=== PATIENT | female | born 1955 | race Caucasian/White ===

== ENCOUNTER 2024-06-29 08:46 | Outpatient (AMB) | payer MEDICARE, BC, SELFPAY ==
[2024-06-29 08:58] VITALS: BP 118/68; PULSE 87; RESP 18; TEMP 35.8; O2SAT 97; BMI 33.0
--- NOTE | 2024-06-29 08:58 | GSCOFFNT_ITS ---
[facility] 06/29/24 08:58 Height 1.57 m Height Method Stated Weight 81.391 kg Weight Measurement Method Standing Scale BMI 33.0 BP 118/68 Blood Pressure Source Automatic Cuff Blood Pressure Location Right Upper Arm Position Sitting Respiration 18 Pulse 87 Pulse Source Monitor Temp 96.5 F L Temp Source Temporal Artery Scan Pulse Oximetry (%) 97 Oxygen Delivery Method Room Air Med/Allergies Allergies & Medications Allergies No Known Allergies Allergy (Verified 06/29/24 08:59) MA Intake Visit Data Collection New Patient or Established: Established Patient (seen at [facility] within 3 years) Seen by Clinical Staff ONLY (RN/MA): No Pain Present Currently: No Legal Transcriptionist Required: No PCP or OBGYN visit in last 3 months: Yes Hx Now: No Do You Feel Safe at Home: Yes Authorities Contacted: N/A Smoking Status Smoking Status: Never smoker Immunization / Flu Flu Vaccine in the Last 12 Months: No Flu Vaccine Exclusion Criteria: No Exclusion Criteria Past Medical History Past Medical History NEUROLOGIC: Negative Neurological Disorders or Seizures CARDIAC: Positive Cardiac Disorders, Coronary Artery Disease (stents 2018), Edema (sometimes right ankle), Hypertension and Varicose Veins; Negative Congestive Heart Failure RESPIRATORY: Negative Chronic Obstructive Pulmonary Disease (COPD) GASTROINTESTINAL: Positive Gastrointestinal Disorders and Obesity; Negative Hepatitis GENITOURINARY: Negative Genitourinary Disorders or Renal Disease REPRODUCTIVE: Positive Breast Cancer (Left, right breast past) and Previous Pregnancies MUSCULOSKELETAL: Positive Arthritis ENT: Negative Cataracts ENDOCRINE: Positive Endocrine Disorders, Hypoglycemia, Hyperthyroidism and Hypothyroidism; Negative Diabetes Mellitus Type 1 or Diabetes Mellitus Type 2 HEMATOLOGIC: Negative Blood Disorders OTHER HISTORY: Positive Hospitalization (surgery), Chemotherapy, Radiation Therapy (2010 right breast), Chicken Pox, Measles, Cancer and Breast Cancer (Left, right breast past); Negative Shingles, Blood Transfusions, Anesthesia Reactions, Organ Transplant or MRSA Family History FAMILY HISTORY: Positive Family Cancer and Family Surgery; Negative Family Psychiatric Problems, Family Respiratory Disorders, Family Cardiac Disorders, Family Gastrointestinal Problems or Family Anesthesia Reaction Surgical History SURGICAL: Positive Coronary Stent, Mastectomy and Lumpectomy; Negative Endocrine Surgery (hypothyroidism), Thyroidectomy, Ear Surgery, Tympanostomy Tube, Eye Surgery, Nose Surgery, Oral Surgery, Tonsillectomy, Adenoidectomy, Cochlear Implant, Corneal Transplant, Throat Surgery, Abdominal Surgery, Tracheostomy, Gastric Bypass Surgery, Gastrostomy, Bowel Surgery, Nephrectomy, Transurethral Resection, Neurologic Surgery, Brain Shunt, Vasectomy or Organ Transplant Social History SMOKING STATUS: Smoking status: Never smoker SECOND HAND EXPOSURE: second hand exposure: No ALCOHOL: Alcohol Intake: Never HOUSING: Housing: House HPI HPI Narrative 68F with HTN, HLD, hypothyroidism, CAD, left breast CA s/p lumpectomy with SLNB 04/01 followed by chemoradiation, with symptomatic left breast hematoma s/p I&D 12/03, gradually recovering. Pt has no complaints, continues to follow up at wound care and feels the wound is gradually sandip ROS Review of Systems Systems Reviewed: All systems reviewed, normal except as documented Objective/Exam General General Appearance: alert, cooperative and well groomed Chest Chest inspection: Present other (left breast upper outer cavity with pink granulation tissue, no surrounding erythema) Resp Respiratory exam: Absent respiratory distress Assessment & Plan Diagnosis / Problem List (1) Postoperative seroma: Status: Acute Qualifiers: Laterality: left Assessment & Plan: 68F with HTN, HLD, hypothyroidism, CAD, left breast CA s/p lumpectomy with SLNB 04/01 followed by chemoradiation, with symptomatic left breast hematoma s/p I&D 12/03, gradually recovering Advanced Care Planning Advance care planning discussed with:: patient Office Procedures GNS Level of Care Nursing/Assessment Patient Status: Established Patient Nursing Assessment/Reassesment: Medication Reconciliation, Update PMH in EMR and Vital Signs Coordination of Care: Complex Care and Chronic Disease 1-5, Education Complex Pt/Fam, Consent,records obtained, informed consent and Staff clarify orders Established Patient Charge Established Patient Point Assignment: 90 Established Patient Point Charge: EP Level 3 (80-115) Patient Portal Questionaires Social History Living Situation History Housing: House Tobacco History Smoking Status: Never smoker Second Hand Smoke Exposure: No Alcohol History Alcohol Intake: Never Domestic Abuse History Do You Feel Safe at Home: Yes Review of Systems Report any current symptoms Only answer those that you have currently: Past Medical History Past Medical History Have you ever been diagnosed with any of the following: Neurological Problems Seizures: No Cardiology Problems Coronary Artery Disease: Yes (stents 2019) Congestive Heart Failure: No Edema: Yes (sometimes right ankle) Hypertension: Yes Varicose Veins: Yes Respiratory Problems Chronic Obstructive Pulmonary Disease (COPD): No Stomache/Intestinal Problems Hepatitis: No Obesity: Yes Genital/Urinary Problems Renal Disease: No Reproductive Problems Breast Cancer: Yes (Left, right breast past) Previous Pregnancies: Yes Musculoskeletal Problems Arthritis: Yes Head,Eye,Nose,Throat Problems Cataracts: No Endocrine Problems Diabetes Mellitus Type 1: No Diabetes Mellitus Type 2: No Hypoglycemia: Yes Hyperthyroidism: Yes Hypothyroidism: Yes Other Problems Hospitalization: Yes (surgery) Shingles: No Blood Transfusions: No Anesthesia Reactions: No Organ Transplant: No Chemotherapy: Yes Radiation Therapy: Yes (2010 right breast) MRSA: No Chicken Pox: Yes Measles: Yes Cancer: Yes Surgical History Thyroidectomy: No
== END 2024-06-29 09:17 | disposition home or self-care (01) ==
LOC: HODSRG 08:46
PROVIDERS: PCP Family Medicine; Referring Provider Family Medicine; Supervising Provider Surgery; Visit Provider Surgery
DX: Z48.817 Encounter for surgical aftercare following surgery on the skin and subcutaneous tissue (principal); C50.912 Malignant neoplasm of unspecified site of left female breast
CPT/HCPCS: 99213; G0463

== ENCOUNTER → 2024-07-28 | Outpatient (CLI) | payer MEDICARE, BC, SELFPAY | END | disposition home or self-care (01) | PROVIDERS: PCP Family Medicine; Referring Provider Family Medicine; Visit Provider Student in an Organized Health Care Education/Training Program | DX: T81.89XD Other complications of procedures, not elsewhere classified, subsequent encounter (principal); L59.8 Other specified disorders of the skin and subcutaneous tissue related to radiation; Y84.2 Radiological procedure and radiotherapy as the cause of abnormal reaction of the patient, or of later complication, without mention of misadventure at the time of the procedure; I25.119 Atherosclerotic heart disease of native coronary artery with unspecified angina pectoris; I10 Essential (primary) hypertension; E78.5 Hyperlipidemia, unspecified; G92.9 Unspecified toxic encephalopathy; M47.9 Spondylosis, unspecified; I25.10 Atherosclerotic heart disease of native coronary artery without angina pectoris | CPT/HCPCS: 11042; A9270 ==

== ENCOUNTER 2024-07-30 08:42 | Outpatient (AMB) | payer MEDICARE, BC, SELFPAY ==
[2024-07-30 08:55] VITALS: BP 128/72; PULSE 83; RESP 18; TEMP 36.1; O2SAT 96; BMI 32.8
--- NOTE | 2024-07-30 08:55 | GSCOFFNT_ITS ---
[facility] - [facility] 07/30/24 08:55 Height 1.57 m Height Method Stated Weight 80.91 kg Weight Measurement Method Standing Scale BMI 32.8 BP 128/72 Blood Pressure Source Automatic Cuff Blood Pressure Location Right Upper Arm Position Sitting Respiration 18 Pulse 83 Pulse Source Monitor Temp 96.9 F Temp Source Temporal Artery Scan Pulse Oximetry (%) 96 Oxygen Delivery Method Room Air Med/Allergies Allergies & Medications Allergies No Known Allergies Allergy (Verified 07/30/24 08:56) Medication Reconciliation clopidogrel 75 mg tablet 75 mg PO QDAY 02/18/23 [History Confirmed 07/30/24] levothyroxine 50 mcg capsule 50 mcg PO QDAY 02/18/23 [History Confirmed 07/30/24] loratadine 10 mg tablet 10 mg PO QDAY 02/18/23 [History Confirmed 07/30/24] rosuvastatin 20 mg tablet 20 mg PO QDAY 02/18/23 [History Confirmed 07/30/24] metoprolol succinate 25 mg tablet,extended release 24 hr 50 mg PO QDAY 04/30/23 [History Confirmed 07/30/24] alendronate 35 mg tablet 35 mg PO QWEEK 12/03/23 [History Confirmed 07/30/24] calcium 250 mg (as citrate)-vitamin D3 5 mcg (200 unit) tablet 1 tab PO BID 12/03/23 [History Confirmed 07/30/24] letrozole 2.5 mg tablet (Femara) 2.5 mg PO QDAY 12/03/23 [History Confirmed 07/30/24] naproxen sodium 220 mg tablet (Aleve) 220 mg PO QHSPRN 12/03/23 [History Confirmed 07/30/24] calcium phosphate-vitamin D3 250 mg calcium-250 unit chewable tablet 1 tab PO QDAY 03/30/24 [History Confirmed 07/30/24] lisinopril 5 mg tablet 5 mg PO QDAY 03/30/24 [History Confirmed 07/30/24] vit C-vit [id number] capsule 1 cap PO QDAY 03/30/24 [History Confirmed 1 09/30/23] MA Intake Visit Data Collection New Patient or Established: Established Patient (seen at [facility] within 3 years) Reason for Visit:: FOLLOW UP Pain Present Currently: Yes Pain Location: Breast Pain scale:: 4 Pain Scale Used: WeldonShyamOneil/Numerical Labor Delivery Specialist Required: No PCP or OBGYN visit in last 3 months: Yes Hx Now: No Do You Feel Safe at Home: Yes Authorities Contacted: N/A Smoking Status Smoking Status: Never smoker Immunization / Flu Flu Vaccine in the Last 12 Months: No Flu Vaccine Exclusion Criteria: No Exclusion Criteria Past Medical History Past Medical History NEUROLOGIC: Negative Neurological Disorders or Seizures CARDIAC: Positive Cardiac Disorders, Coronary Artery Disease (stents 2019), Edema (sometimes right ankle), Hypertension and Varicose Veins; Negative Congestive Heart Failure RESPIRATORY: Negative Chronic Obstructive Pulmonary Disease (COPD) GASTROINTESTINAL: Positive Gastrointestinal Disorders and Obesity; Negative Hepatitis GENITOURINARY: Negative Genitourinary Disorders or Renal Disease REPRODUCTIVE: Positive Breast Cancer (Left, right breast past) and Previous Pregnancies MUSCULOSKELETAL: Positive Arthritis ENT: Negative Cataracts ENDOCRINE: Positive Endocrine Disorders, Hypoglycemia, Hyperthyroidism and Hypothyroidism; Negative Diabetes Mellitus Type 1 or Diabetes Mellitus Type 2 HEMATOLOGIC: Negative Blood Disorders OTHER HISTORY: Positive Hospitalization (surgery), Chemotherapy, Radiation Therapy (2010 right breast), Chicken Pox, Measles, Cancer and Breast Cancer (Left, right breast past); Negative Shingles, Blood Transfusions, Anesthesia Reactions, Organ Transplant or MRSA Family History FAMILY HISTORY: Positive Family Cancer and Family Surgery; Negative Family Psychiatric Problems, Family Respiratory Disorders, Family Cardiac Disorders, Family Gastrointestinal Problems or Family Anesthesia Reaction Surgical History SURGICAL: Positive Coronary Stent, Mastectomy and Lumpectomy; Negative Endocrine Surgery (hypothyroidism), Thyroidectomy, Ear Surgery, Tym panostomy Tube, Eye Surgery, Nose Surgery, Oral Surgery, Tonsillectomy, Adenoidectomy, Cochlear Implant, Corneal Transplant, Throat Surgery, Abdominal Surgery, Tracheostomy, Gastric Bypass Surgery, Gastrostomy, Bowel Surgery, Nephrectomy, Transurethral Resection, Neurologic Surgery, Brain Shunt, Vasectomy or Organ Transplant Social History SMOKING STATUS: Smoking status: Never smoker SECOND HAND EXPOSURE: second hand exposure: No ALCOHOL: Alcohol Intake: Never HOUSING: Housing: House HPI HPI Narrative 68F with HTN, HLD, hypothyroidism, CAD, left breast CA s/p lumpectomy with SLNB 04/01 followed by chemoradiation, with symptomatic left breast hematoma s/p I&D 12/03, gradually recovering. Pt feels well overall, is continuing regular follow up at wound care and feels the wound is finally sandip more ROS Review of Systems Systems Reviewed: All systems reviewed, normal except as documented Objective/Exam General General Appearance: alert, cooperative and well groomed Chest Chest inspection: Present other (right upper outer breast cavity with healthy pink tissue at base, no surrounding erythema, no drainage) Resp Respiratory exam: Absent respiratory distress Assessment & Plan Diagnosis / Problem List (1) Postoperative seroma: Status: Acute Qualifiers: Laterality: left Assessment & Plan: 68F with HTN, HLD, hypothyroidism, CAD, left breast CA s/p lumpectomy with SLNB 04/01 followed by chemoradiation, with symptomatic left breast hematoma s/p I&D 12/03, gradually recovering Advanced Care Planning Advance care planning discussed with:: patient Office Procedures GNS Level of Care Nursing/Assessment Patient Status: Established Patient Nursing Assessment/Reassesment: Medication Reconciliation, Update PMH in EMR and Vital Signs Coordination of Care: Complex Care and Chronic Disease 1-5, Education Complex Pt/Fam, Consent,records obtained, informed consent, Results/Orders obtained and Staff clarify orders Miscellaneous Interventions: Dressing placement or removal Established Patient Charge Established Patient Point Assignment: 115 Established Patient Point Charge: EP Level 3 (80-115) Patient Portal Questionaires Social History Living Situation History Housing: House Tobacco History Smoking Status: Never smoker Second Hand Smoke Exposure: No Alcohol History Alcohol Intake: Never Domestic Abuse History Do You Feel Safe at Home: Yes Review of Systems Report any current symptoms Only answer those that you have currently: Past Medical History Past Medical History Have you ever been diagnosed with any of the following: Neurological Problems Seizures: No Cardiology Problems Coronary Artery Disease: Yes (stents 2019) Congestive Heart Failure: No Edema: Yes (sometimes right ankle) Hypertension: Yes Varicose Veins: Yes Respiratory Problems Chronic Obstructive Pulmonary Disease (COPD): No Stomache/Intestinal Problems Hepatitis: No Obesity: Yes Genital/Urinary Problems Renal Disease: No Reproductive Problems Breast Cancer: Yes (Left, right breast past) Previous Pregnancies: Yes Musculoskeletal Problems Arthritis: Yes Head,Eye,Nose,Throat Problems Cataracts: No Endocrine Problems Diabetes Mellitus Type 1: No Diabetes Mellitus Type 2: No Hypoglycemia: Yes Hyperthyroidism: Yes Hypothyroidism: Yes Other Problems Hospitalization: Yes (surgery) Shingles: No Blood Transfusions: No Anesthesia Reactions: No Organ Transplant: No Chemotherapy: Yes Radiation Therapy: Yes (2010 right breast) MRSA: No Chicken Pox: Yes Measles: Yes Cancer: Yes Surgical History Thyroidectomy: No
== END 2024-07-30 09:15 | disposition home or self-care (01) ==
LOC: HODSRG 08:42
PROVIDERS: PCP Family Medicine; Referring Provider Family Medicine; Supervising Provider Surgery; Visit Provider Surgery
DX: Z48.817 Encounter for surgical aftercare following surgery on the skin and subcutaneous tissue (principal); C50.912 Malignant neoplasm of unspecified site of left female breast
CPT/HCPCS: 99213; G0463

== ENCOUNTER → 2024-08-04 | Outpatient (CLI) | payer MEDICARE, BC, SELFPAY | END | disposition home or self-care (01) | LOC: SWHD 08:34 | PROVIDERS: PCP Family Medicine; Referring Provider Family Medicine; Visit Provider Surgery | DX: L59.8 Other specified disorders of the skin and subcutaneous tissue related to radiation (principal); Y84.2 Radiological procedure and radiotherapy as the cause of abnormal reaction of the patient, or of later complication, without mention of misadventure at the time of the procedure; I25.119 Atherosclerotic heart disease of native coronary artery with unspecified angina pectoris; I10 Essential (primary) hypertension; E78.5 Hyperlipidemia, unspecified; G92.9 Unspecified toxic encephalopathy; M47.9 Spondylosis, unspecified; I25.10 Atherosclerotic heart disease of native coronary artery without angina pectoris | CPT/HCPCS: 11042; A9270 ==

== ENCOUNTER 2024-08-11 13:06 | Outpatient (RCR) | payer MEDICARE, BC, SELFPAY ==
[2024-08-10 10:53] LABS: Basophils # (Auto) 0.1 Thou/mm3 (0.0-0.2); Basophils % (Auto) 1 % (0-2.5); Eosinophils # (Auto) 0.2 Thou/mm3 (0.0-0.5); Eosinophils % (Auto) 4 % (0-10); Hematocrit 37.6 % (36.0-46.0); Hemoglobin 12.6 g/dL (12.0-16.0); Immature Granulocytes % (Auto) 0 % (0-0); Immature Granulocytes Auto 0.01 Thou/mm3 (0.00-0.00); Lymphocytes # (Auto) 1.5 Thou/mm3 (1.0-4.8); Lymphocytes % (Auto) 26 % (10-50); Mean Corpuscular HGB Conc 33.5 g/dl (31.0-37.0); Mean Corpuscular Hemoglobin 30.1 pg (25.0-35.0); Mean Corpuscular Volume 90 fL (80-100); Monocytes # (Auto) 0.6 Thou/mm3 (0.0-0.8); Monocytes % (Auto) 11 % (0-12); Neutrophils # (Auto) 3.3 Thou/mm3 (1.8-7.7); Neutrophils % (Auto) 58 % (37-80); Nucleated Red Blood Cell % 0 /100 WBC (0); Platelet Count 201 Thou/mm3 (140-440); RDW Standard Deviation 44.1 fL (36.4-46.3); Red Blood Count 4.19 Miln/mm3 (4.00-5.20); White Blood Count 5.7 Thou/mm3 (3.6-11.0)
[2024-08-10 11:10] LABS: Alanine Aminotransferase 43 U/L (10-49); Albumin, Serum 4.5 gm/dL (3.4-4.8); Albumin/Globulin Ratio 1.9 (1.2-2.2); Alkaline Phosphatase 73 U/L (46-116); Anion Gap 10 (7-16); Aspartate Amino Transferase 40 U/L (0-34); BUN/Creatinine Ratio 20 Ratio (12-20); Bilirubin,Total 0.6 mg/dL (0.3-1.2); Blood Urea Nitrogen 14 mg/dL (9-23); Calcium 10.3 mg/dL (8.3-10.6); Calcium (Corrected) 10.3 mg/dL (8.5-10.1); Carbon Dioxide 26.5 mMol/L (20.0-31.0); Chloride 103 mMol/L (98-107); Creatinine (Component) 0.7 mg/dL (0.6-1.3); Globulin 2.4 gm/dL (2.3-3.5); Glucose 115 mg/dL (74-106); Osmolality,Calculated 279 (275-295); Potassium 4.5 mMol/L (3.4-5.1); Sodium 139 mMol/L (136-145); Total Protein 6.9 gm/dL (5.7-8.2); eGFR > 60 See Note
== END 2024-08-25 23:59 | disposition home or self-care (01) ==
LOC: SCTC 13:06
PROVIDERS: Internal Medicine Hematology & Oncology; PCP Family Medicine; Referring Provider Family Medicine; Visit Provider Radiology Therapeutic Radiology
DX: C50.812 Malignant neoplasm of overlapping sites of left female breast (principal); Z79.811 Long term (current) use of aromatase inhibitors; Z90.12 Acquired absence of left breast and nipple; Z17.0 Estrogen receptor positive status [ER+]; Z17.22 Progesterone receptor negative status; Z17.32 Human epidermal growth factor receptor 2 negative status; M85.88 Other specified disorders of bone density and structure, other site
CPT/HCPCS: 36415; 80053; 85025; 96365; A4216; J1642; J3489

== ENCOUNTER → 2024-08-11 | Outpatient (CLI) | payer MEDICARE, BC, SELFPAY | END | disposition home or self-care (01) | PROVIDERS: PCP Family Medicine; Referring Provider Family Medicine; Visit Provider Student in an Organized Health Care Education/Training Program | DX: T81.89XD Other complications of procedures, not elsewhere classified, subsequent encounter (principal); L59.8 Other specified disorders of the skin and subcutaneous tissue related to radiation; Y84.2 Radiological procedure and radiotherapy as the cause of abnormal reaction of the patient, or of later complication, without mention of misadventure at the time of the procedure; I25.119 Atherosclerotic heart disease of native coronary artery with unspecified angina pectoris; I10 Essential (primary) hypertension; E78.5 Hyperlipidemia, unspecified; G92.9 Unspecified toxic encephalopathy; M47.9 Spondylosis, unspecified; I25.10 Atherosclerotic heart disease of native coronary artery without angina pectoris | CPT/HCPCS: 11042; A9270 ==

== ENCOUNTER → 2024-08-25 | Outpatient (CLI) | payer MEDICARE, BC, SELFPAY | END | disposition home or self-care (01) | PROVIDERS: PCP Family Medicine; Referring Provider Family Medicine; Visit Provider Student in an Organized Health Care Education/Training Program | DX: T81.89XD Other complications of procedures, not elsewhere classified, subsequent encounter (principal); L59.8 Other specified disorders of the skin and subcutaneous tissue related to radiation; Y84.2 Radiological procedure and radiotherapy as the cause of abnormal reaction of the patient, or of later complication, without mention of misadventure at the time of the procedure; I25.119 Atherosclerotic heart disease of native coronary artery with unspecified angina pectoris; I10 Essential (primary) hypertension; E78.5 Hyperlipidemia, unspecified; G92.9 Unspecified toxic encephalopathy; M47.9 Spondylosis, unspecified; I25.10 Atherosclerotic heart disease of native coronary artery without angina pectoris | CPT/HCPCS: 11042; A9270 ==

== ENCOUNTER 2024-08-27 12:55 | Outpatient (AMB) | payer MEDICARE, BC, SELFPAY ==
--- NOTE | 2024-08-27 13:08 | PD.GSCLVISIT ---
[facility] - [facility] 08/27/24 13:09 Height 1.57 m Height Method Stated Weight 80.995 kg Weight Measurement Method Standing Scale BMI 32.8 BP 125/72 Blood Pressure Source Automatic Cuff Blood Pressure Location Left Upper Arm Position Sitting Respiration 18 Pulse 78 Pulse Source Monitor Temp 97.3 F Temp Source Temporal Artery Scan Pulse Oximetry (%) 98 Oxygen Delivery Method Room Air Med/Allergies Allergies & Medications Allergies No Known Allergies Allergy (Verified 08/27/24 13:10) Medication Reconciliation clopidogrel 75 mg tablet 75 mg PO QDAY 02/18/23 [History Confirmed 08/27/24] levothyroxine 50 mcg capsule 50 mcg PO QDAY 02/18/23 [History Confirmed 08/27/24] loratadine 10 mg tablet 10 mg PO QDAY 02/18/23 [History Confirmed 08/27/24] rosuvastatin 20 mg tablet 20 mg PO QDAY 02/18/23 [History Confirmed 08/27/24] metoprolol succinate 25 mg tablet,extended release 24 hr 50 mg PO QDAY 04/30/23 [History Confirmed 08/27/24] alendronate 35 mg tablet 35 mg PO QWEEK 12/03/23 [History Confirmed 08/27/24] calcium 250 mg (as citrate)-vitamin D3 5 mcg (200 unit) tablet 1 tab PO BID 12/03/23 [History Confirmed 08/27/24] letrozole 2.5 mg tablet (Femara) 2.5 mg PO QDAY 12/03/23 [History Confirmed 08/27/24] naproxen sodium 220 mg tablet (Aleve) 220 mg PO QHSPRN 12/03/23 [History Confirmed 08/27/24] calcium phosphate-vitamin D3 250 mg calcium-250 unit chewable tablet 1 tab PO QDAY 03/30/24 [History Confirmed 08/27/24] lisinopril 5 mg tablet 5 mg PO QDAY 03/30/24 [History Confirmed 08/27/24] vit C-vit C-[id number] capsule 1 cap PO QDAY 03/30/24 [History Confirmed 08/27/24] MA Intake Visit Data Collection New Patient or Established: Established Patient (seen at [facility] within 3 years) Seen by Clinical Staff ONLY (RN/MA): No Pain Present Currently: No Automotive Sales Associate Required: No PCP or OBGYN visit in last 3 months: Yes Hx Now: No Do You Feel Safe at Home: Yes Authorities Contacted: N/A Smoking Status Smoking Status: Never smoker Immunization / Flu Flu Vaccine in the Last 12 Months: No Flu Vaccine Exclusion Criteria: No Exclusion Criteria Past Medical History Past Medical History NEUROLOGIC: Negative Neurological Disorders or Seizures CARDIAC: Positive Cardiac Disorders, Coronary Artery Disease (stents 2019), Edema (sometimes right ankle), Hypertension and Varicose Veins; Negative Congestive Heart Failure RESPIRATORY: Negative Chronic Obstructive Pulmonary Disease (COPD) GASTROINTESTINAL: Positive Gastrointestinal Disorders and Obesity; Negative Hepatitis GENITOURINARY: Negative Genitourinary Disorders or Renal Disease REPRODUCTIVE: Positive Breast Cancer (Left, right breast past) and Previous Pregnancies MUSCULOSKELETAL: Positive Arthritis ENT: Negative Cataracts ENDOCRINE: Positive Endocrine Disorders, Hypoglycemia, Hyperthyroidism and Hypothyroidism; Negative Diabetes Mellitus Type 1 or Diabetes Mellitus Type 2 HEMATOLOGIC: Negative Blood Disorders OTHER HISTORY: Positive Hospitalization (surgery), Chemotherapy, Radiation Therapy (2010 right breast), Chicken Pox, Measles, Cancer and Breast Cancer (Left, right breast past); Negative Shingles, Blood Transfusions, Anesthesia Reactions, Organ Transplant or MRSA Family History FAMILY HISTORY: Positive Family Cancer and Family Surgery; Negative Family Psychiatric Problems, Family Respiratory Disorders, Family Cardiac Disorders, Family Gastrointestinal Problems or Family Anesthesia Reaction Surgical History SURGICAL: Positive Coronary Stent, Mastectomy and Lumpectomy; Negative Endocrine Surgery (hypothyroidism), Thyroidectomy, Ear Surgery, Tympanostomy Tube, Eye Surgery, Nose Surgery, Oral Surgery, Tonsillectomy, Adenoidectomy, Cochlear Implant, Corneal Transplant, Throat Surgery, Abdominal Surgery, Tracheostomy, Gastric Bypass Surgery, Gastrostomy, Bowel Surgery, Nephrectomy, Transurethral Resection, Neurologic Surgery, Brain Shunt, Vasectomy or Organ Transplant Social History SMOKING STATUS: Smoking status: Never smoker SECOND HAND EXPOSURE: second hand exposure: No ALCOHOL: Alcohol Intake: Never HOUSING: Housing: House HPI HPI Narrative No complaints, was advised at wound healing that her wound is >80% healed compared to her first visit there ROS Review of Systems Systems Reviewed: All systems reviewed, normal except as documented Objective/Exam General General Appearance: alert, cooperative and well groomed Chest Chest inspection: Present other (left breast upper outer cavity with beefy red granulation tissue, no surrounding erythema, no fluctuance or tenderness) Resp Respiratory exam: Absent respiratory distress Assessment & Plan Diagnosis / Problem List (1) Postoperative seroma: Status: Acute Qualifiers: Laterality: left Assessment & Plan: 69F with HTN, HLD, hypothyroidism, CAD, left breast CA s/p lumpectomy with SLNB 04/01 followed by chemoradiation, with symptomatic left breast hematoma s/p I&D 12/03, gradually recovering. I recommended pt discuss surveillance mammogram with her PCP at next visit which is scheduled 10/08/24 Advanced Care Planning Advance care planning discussed with:: patient Office Procedures GNS Level of Care Nursing/Assessment Patient Status: Established Patient Nursing Assessment/Reassesment: Medication Reconciliation, Update PMH in EMR and Vital Signs Coordination of Care: Complex Care and Chronic Disease 1-5, Consent,records obtained, informed consent, Education Simp Pt/Fam, Results/Orders obtained and Staff clarify orders Established Patient Charge Established Patient Point Assignment: 90 Established Patient Point Charge: EP Level 3 (80-115) Patient Portal Questionaires Social History Living Situation History Housing: House Tobacco History Smoking Status: Never smoker Second Hand Smoke Exposure: No Alcohol History Alcohol Intake: Never Domestic Abuse History Do You Feel Safe at Home: Yes Review of Systems Report any current symptoms Only answer those that you have currently: Past Medical History Past Medical History Have you ever been diagnosed with any of the following: Neurological Problems Seizures: No Cardiology Problems Coronary Artery Disease: Yes (stents 2019) Congestive Heart Failure: No Edema: Yes (sometimes right ankle) Hypertension: Yes Varicose Veins: Yes Respiratory Problems Chronic Obstructive Pulmonary Disease (COPD): No Stomache/Intestinal Problems Hepatitis: No Obesity: Yes Genital/Urinary Problems Renal Disease: No Reproductive Problems Breast Cancer: Yes (Left, right breast past) Previous Pregnancies: Yes Musculoskeletal Problems Arthritis: Yes Head,Eye,Nose,Throat Problems Cataracts: No Endocrine Problems Diabetes Mellitus Type 1: No Diabetes Mellitus Type 2: No Hypoglycemia: Yes Hyperthyroidism: Yes Hypothyroidism: Yes Other Problems Hospitalization: Yes (surgery) Shingles: No Blood Transfusions: No Anesthesia Reactions: No Organ Transplant: No Chemotherapy: Yes Radiation Therapy: Yes (2010 right breast) MRSA: No Chicken Pox: Yes Measles: Yes Cancer: Yes Surgical History Thyroidectomy: No
[2024-08-27 13:09] VITALS: BP 125/72; PULSE 78; RESP 18; TEMP 36.3; O2SAT 98; BMI 32.8
== END 2024-08-27 13:17 | disposition home or self-care (01) ==
LOC: HODSRG 12:55
PROVIDERS: PCP Family Medicine; Referring Provider Family Medicine; Supervising Provider Surgery; Visit Provider Surgery
DX: Z48.817 Encounter for surgical aftercare following surgery on the skin and subcutaneous tissue (principal); C50.912 Malignant neoplasm of unspecified site of left female breast
CPT/HCPCS: 99213; G0463

== ENCOUNTER → 2024-09-08 | Outpatient (CLI) | payer MEDICARE, BC, SELFPAY | END | disposition home or self-care (01) | PROVIDERS: PCP Family Medicine; Referring Provider Family Medicine; Visit Provider Surgery | DX: T81.89XD Other complications of procedures, not elsewhere classified, subsequent encounter (principal); L59.8 Other specified disorders of the skin and subcutaneous tissue related to radiation; Y84.2 Radiological procedure and radiotherapy as the cause of abnormal reaction of the patient, or of later complication, without mention of misadventure at the time of the procedure; I25.119 Atherosclerotic heart disease of native coronary artery with unspecified angina pectoris; I10 Essential (primary) hypertension; E78.5 Hyperlipidemia, unspecified; G92.9 Unspecified toxic encephalopathy; M47.9 Spondylosis, unspecified; I25.10 Atherosclerotic heart disease of native coronary artery without angina pectoris | CPT/HCPCS: 11042; A9270 ==

== ENCOUNTER → 2024-09-15 | Outpatient (CLI) | payer MEDICARE, BC, SELFPAY | END | disposition home or self-care (01) | LOC: SWHD 09:36 | PROVIDERS: PCP Family Medicine; Referring Provider Family Medicine; Visit Provider Student in an Organized Health Care Education/Training Program | DX: T81.89XA Other complications of procedures, not elsewhere classified, initial encounter (principal); L59.8 Other specified disorders of the skin and subcutaneous tissue related to radiation; Y84.2 Radiological procedure and radiotherapy as the cause of abnormal reaction of the patient, or of later complication, without mention of misadventure at the time of the procedure; I25.119 Atherosclerotic heart disease of native coronary artery with unspecified angina pectoris; I10 Essential (primary) hypertension; E78.5 Hyperlipidemia, unspecified; G92.9 Unspecified toxic encephalopathy; M47.9 Spondylosis, unspecified; I25.10 Atherosclerotic heart disease of native coronary artery without angina pectoris | CPT/HCPCS: 11042; A9270 ==

== ENCOUNTER → 2024-09-22 | Outpatient (CLI) | payer MEDICARE, BC, SELFPAY | END | disposition home or self-care (01) | LOC: SWHD 09:38 | PROVIDERS: PCP Family Medicine; Referring Provider Family Medicine; Visit Provider Student in an Organized Health Care Education/Training Program | DX: T81.89XA Other complications of procedures, not elsewhere classified, initial encounter (principal); L59.8 Other specified disorders of the skin and subcutaneous tissue related to radiation; Y84.2 Radiological procedure and radiotherapy as the cause of abnormal reaction of the patient, or of later complication, without mention of misadventure at the time of the procedure; I25.119 Atherosclerotic heart disease of native coronary artery with unspecified angina pectoris; I10 Essential (primary) hypertension; E78.5 Hyperlipidemia, unspecified; G92.9 Unspecified toxic encephalopathy; M47.9 Spondylosis, unspecified; I25.10 Atherosclerotic heart disease of native coronary artery without angina pectoris | CPT/HCPCS: 11042; A9270 ==

== ENCOUNTER 2024-09-28 09:27 | Outpatient (AMB) | payer MEDICARE, BC, SELFPAY ==
[2024-09-28 09:38] VITALS: BP 119/73; PULSE 80; RESP 19; TEMP 35.9; O2SAT 97; BMI 32.2
--- NOTE | 2024-09-28 09:38 | PD.GSCLVISIT ---
[facility] - [facility] 09/28/24 09:38 Height 1.57 m Height Method Stated Weight 79.464 kg Weight Measurement Method Standing Scale BMI 32.2 BP 119/73 Blood Pressure Source Automatic Cuff Blood Pressure Location Left Upper Arm Position Sitting Respiration 19 Pulse 80 Pulse Source Monitor Temp 96.6 F L Temp Source Temporal Artery Scan Pulse Oximetry (%) 97 Oxygen Delivery Method Room Air Med/Allergies Allergies & Medications Allergies No Known Allergies Allergy (Verified 09/28/24 09:38) Medication Reconciliation clopidogrel 75 mg tablet 75 mg PO QDAY 02/18/23 [History Confirmed 09/28/24] levothyroxine 50 mcg capsule 50 mcg PO QDAY 02/18/23 [History Confirmed 09/28/24] loratadine 10 mg tablet 10 mg PO QDAY 02/18/23 [History Confirmed 09/28/24] rosuvastatin 20 mg tablet 20 mg PO QDAY 02/18/23 [History Confirmed 09/28/24] metoprolol succinate 25 mg tablet,extended release 24 hr 50 mg PO QDAY 04/30/23 [History Confirmed 09/28/24] alendronate 35 mg tablet 35 mg PO QWEEK 12/03/23 [History Confirmed 09/28/24] calcium 250 mg (as citrate)-vitamin D3 5 mcg (200 unit) tablet 1 tab PO BID 12/03/23 [History Confirmed 09/28/24] letrozole 2.5 mg tablet (Femara) 2.5 mg PO QDAY 12/03/23 [History Confirmed 09/28/24] naproxen sodium 220 mg tablet (Aleve) 220 mg PO QHSPRN 12/03/23 [History Confirmed 09/28/24] calcium phosphate-vitamin D3 250 mg calcium-250 unit chewable tablet 1 tab PO QDAY 03/30/24 [History Confirmed 09/28/24] lisinopril 5 mg tablet 5 mg PO QDAY 03/30/24 [History Confirmed 09/28/24] vit C-vit [id number] capsule 1 cap PO QDAY 03/30/24 [History Confirmed 09/28/24] MA Intake Visit Data Collection New Patient or Established: Established Patient (seen at [facility] within 3 years) Seen by Clinical Staff ONLY (RN/MA): No Reason for Visit:: FOLLOW UP Pain Present Currently: No Bacon Slicer Required: No PCP or OBGYN visit in last 3 months: Yes Hx Now: No Do You Feel Safe at Home: Yes Authorities Contacted: N/A Smoking Status Smoking Status: Never smoker Immunization / Flu Flu Vaccine in the Last 12 Months: No Flu Vaccine Exclusion Criteria: No Exclusion Criteria Past Medical History Past Medical History NEUROLOGIC: Negative Neurological Disorders or Seizures CARDIAC: Positive Cardiac Disorders, Coronary Artery Disease (stents 2019), Edema (sometimes right ankle), Hypertension and Varicose Veins; Negative Congestive Heart Failure RESPIRATORY: Negative Chronic Obstructive Pulmonary Disease (COPD) GASTROINTESTINAL: Positive Gastrointestinal Disorders and Obesity; Negative Hepatitis GENITOURINARY: Negative Genitourinary Disorders or Renal Disease REPRODUCTIVE: Positive Breast Cancer (Left, right breast past) and Previous Pregnancies MUSCULOSKELETAL: Positive Arthritis ENT: Negative Cataracts ENDOCRINE: Positive Endocrine Disorders, Hypoglycemia, Hyperthyroidism and Hypothyroidism; Negative Diabetes Mellitus Type 1 or Diabetes Mellitus Type 2 HEMATOLOGIC: Negative Blood Disorders OTHER HISTORY: Positive Hospitalization (surgery), Chemotherapy, Radiation Therapy (2010 right breast), Chicken Pox, Measles, Cancer and Breast Cancer (Left, right breast past); Negative Shingles, Blood Transfusions, Anesthesia Reactions, Organ Transplant or MRSA Family History FAMILY HISTORY: Positive Family Cancer and Family Surgery; Negative Family Psychiatric Problems, Family Respiratory Disorders, Family Cardiac Disorders, Family Gastrointestinal Problems or Family Anesthesia Reaction Surgical History SURGICAL: Positive Coronary Stent, Mastectomy and Lumpectomy; Negative Endocrine Surgery (hypothyroidism), Thyroidectomy, Ear Surgery, Tympanostomy Tube, Eye Surgery, Nose Surgery, Oral Surgery, Tonsillectomy, Adenoidectomy, Cochlear Implant, Corneal Transplant, Throat Surgery, Abdominal Surgery, Tracheostomy, Gastric Bypass Surgery, Gastrostomy, Bowel Surgery, Nephrectomy, Transurethral Resection, Neurologic Surgery, Brain Shunt, Vasectomy or Organ Transplant Social History SMOKING STATUS: Smoking status: Never smoker SECOND HAND EXPOSURE: second hand exposure: No ALCOHOL: Alcohol Intake: Never HOUSING: Housing: House HPI HPI Narrative 69F with HTN, HLD, hypothyroidism, CAD, left breast CA s/p lumpectomy with SLNB 04/01/23 followed by chemoradiation, with symptomatic left breast hematoma s/p I&D 12/04/23 here for planned follow up. Pt reports feeling well overall, she is continuing her weekly visits at wound healing and the wound is noticeably sandip Objective/Exam General General Appearance: alert, cooperative and well groomed Chest Chest inspection: Present other (left breast cavity with beefy red granulation tissue, no surrounding erythema) Resp Respiratory exam: Absent respiratory distress Assessment & Plan Diagnosis / Problem List (1) Postoperative seroma: Status: Acute Qualifiers: Laterality: left Plan 69F with HTN, HLD, hypothyroidism, CAD, left breast CA s/p lumpectomy with SLNB 04/01/23 followed by chemoradiation, with symptomatic left breast hematoma s/p I&D 12/04/23, gradually recovering Advanced Care Planning Advance care planning discussed with:: patient Office Procedures GNS Level of Care Nursing/Assessment Patient Status: Established Patient Nursing Assessment/Reassesment: Medication Reconciliation, Update PMH in EMR and Vital Signs Coordination of Care: Complex Care and Chronic Disease 1-5, Consent,records obtained, informed consent, Education Simp Pt/Fam, Results/Orders obtained and Staff clarify orders Established Patient Charge Established Patient Point Assignment: 90 Established Patient Point Charge: EP Level 3 (80-115) Patient Portal Questionaires Social History Living Situation History Housing: House Tobacco History Smoking Status: Never smoker Second Hand Smoke Exposure: No Alcohol History Alcohol Intake: Never Domestic Abuse History Do You Feel Safe at Home: Yes Review of Systems Report any current symptoms Only answer those that you have currently: Past Medical History Past Medical History Have you ever been diagnosed with any of the following: Neurological Problems Seizures: No Cardiology Problems Coronary Artery Disease: Yes (stents 2019) Congestive Heart Failure: No Edema: Yes (sometimes right ankle) Hypertension: Yes Varicose Veins: Yes Respiratory Problems Chronic Obstructive Pulmonary Disease (COPD): No Stomache/Intestinal Problems Hepatitis: No Obesity: Yes Genital/Urinary Problems Renal Disease: No Reproductive Problems Breast Cancer: Yes (Left, right breast past) Previous Pregnancies: Yes Musculoskeletal Problems Arthritis: Yes Head,Eye,Nose,Throat Problems Cataracts: No Endocrine Problems Diabetes Mellitus Type 1: No Diabetes Mellitus Type 2: No Hypoglycemia: Yes Hyperthyroidism: Yes Hypothyroidism: Yes Other Problems Hospitalization: Yes (surgery) Shingles: No Blood Transfusions: No Anesthesia Reactions: No Organ Transplant: No Chemotherapy: Yes Radiation Therapy: Yes (2010 right breast) MRSA: No Chicken Pox: Yes Measles: Yes Cancer: Yes Surgical History Thyroidectomy: No
== END 2024-09-28 09:55 | disposition home or self-care (01) ==
LOC: HODSRG 09:27
PROVIDERS: PCP Family Medicine; Referring Provider Family Medicine; Supervising Provider Surgery; Visit Provider Surgery
DX: Z48.817 Encounter for surgical aftercare following surgery on the skin and subcutaneous tissue (principal); C50.912 Malignant neoplasm of unspecified site of left female breast
CPT/HCPCS: 99213; G0463

== ENCOUNTER → 2024-09-29 | Outpatient (CLI) | payer MEDICARE, BC, SELFPAY | END | disposition home or self-care (01) | LOC: SWHD 09:30 | PROVIDERS: PCP Family Medicine; Referring Provider Family Medicine; Visit Provider Student in an Organized Health Care Education/Training Program | DX: T81.89XA Other complications of procedures, not elsewhere classified, initial encounter (principal); L59.8 Other specified disorders of the skin and subcutaneous tissue related to radiation; Y84.2 Radiological procedure and radiotherapy as the cause of abnormal reaction of the patient, or of later complication, without mention of misadventure at the time of the procedure; I25.119 Atherosclerotic heart disease of native coronary artery with unspecified angina pectoris; I10 Essential (primary) hypertension; E78.5 Hyperlipidemia, unspecified; G92.9 Unspecified toxic encephalopathy; M47.9 Spondylosis, unspecified; I25.10 Atherosclerotic heart disease of native coronary artery without angina pectoris | CPT/HCPCS: 97597; A9270 ==

== ENCOUNTER → 2024-10-06 | Outpatient (CLI) | payer MEDICARE, BC, SELFPAY | END | disposition home or self-care (01) | LOC: SWHD 09:43 | PROVIDERS: PCP Family Medicine; Referring Provider Family Medicine; Visit Provider Student in an Organized Health Care Education/Training Program | DX: T81.89XA Other complications of procedures, not elsewhere classified, initial encounter (principal); L59.8 Other specified disorders of the skin and subcutaneous tissue related to radiation; Y84.2 Radiological procedure and radiotherapy as the cause of abnormal reaction of the patient, or of later complication, without mention of misadventure at the time of the procedure; I25.119 Atherosclerotic heart disease of native coronary artery with unspecified angina pectoris; I10 Essential (primary) hypertension; E78.5 Hyperlipidemia, unspecified; G92.9 Unspecified toxic encephalopathy; M47.9 Spondylosis, unspecified; I25.10 Atherosclerotic heart disease of native coronary artery without angina pectoris | CPT/HCPCS: 97597; A9270 ==

== ENCOUNTER → 2024-10-13 | Outpatient (CLI) | payer MEDICARE, BC, SELFPAY | END | disposition home or self-care (01) | LOC: SWHD 09:38 | PROVIDERS: PCP Family Medicine; Referring Provider Family Medicine; Visit Provider Student in an Organized Health Care Education/Training Program | DX: T81.89XA Other complications of procedures, not elsewhere classified, initial encounter (principal); L59.8 Other specified disorders of the skin and subcutaneous tissue related to radiation; Y84.2 Radiological procedure and radiotherapy as the cause of abnormal reaction of the patient, or of later complication, without mention of misadventure at the time of the procedure; I25.119 Atherosclerotic heart disease of native coronary artery with unspecified angina pectoris; I10 Essential (primary) hypertension; E78.5 Hyperlipidemia, unspecified; G92.9 Unspecified toxic encephalopathy; M47.9 Spondylosis, unspecified; I25.10 Atherosclerotic heart disease of native coronary artery without angina pectoris | CPT/HCPCS: 11042; A9270 ==

== ENCOUNTER → 2024-10-20 | Outpatient (CLI) | payer MEDICARE, BC, SELFPAY | END | disposition home or self-care (01) | PROVIDERS: PCP Family Medicine; Referring Provider Family Medicine; Visit Provider Surgery | DX: T81.89XA Other complications of procedures, not elsewhere classified, initial encounter (principal); L59.8 Other specified disorders of the skin and subcutaneous tissue related to radiation; I25.119 Atherosclerotic heart disease of native coronary artery with unspecified angina pectoris; I10 Essential (primary) hypertension; E78.5 Hyperlipidemia, unspecified; G92.9 Unspecified toxic encephalopathy; M47.9 Spondylosis, unspecified; I25.10 Atherosclerotic heart disease of native coronary artery without angina pectoris | CPT/HCPCS: 99213; A9270; G0463 ==

== ENCOUNTER 2024-10-26 08:59 | Outpatient (AMB) | payer MEDICARE, BC, SELFPAY ==
[2024-10-26 09:08] VITALS: BP 123/83; PULSE 86; RESP 18; TEMP 35.4; O2SAT 97; BMI 32.8
--- NOTE | 2024-10-26 09:08 | GSCOFFNT_ITS ---
[facility] Signs - [facility] 10/26/24 09:08 Height 1.57 m Height Method Stated Weight 80.853 kg Weight Measurement Method Standing Scale BMI 32.8 BP 123/83 Blood Pressure Source Automatic Cuff Blood Pressure Location Left Upper Arm Position Sitting Respiration 18 Pulse 86 Pulse Source Monitor Temp 95.7 F L Temp Source Temporal Artery Scan Pulse Oximetry (%) 97 Oxygen Delivery Method Room Air Med/Allergies Allergies & Medications Allergies No Known Allergies Allergy (Verified 10/26/24 09:09) Medication Reconciliation clopidogrel 75 mg tablet 75 mg PO QDAY 02/18/23 [History Confirmed 10/26/24] levothyroxine 50 mcg capsule 50 mcg PO QDAY 02/18/23 [History Confirmed 10/26/24] loratadine 10 mg tablet 10 mg PO QDAY 02/18/23 [History Confirmed 10/26/24] rosuvastatin 20 mg tablet 20 mg PO QDAY 02/18/23 [History Confirmed 10/26/24] metoprolol succinate 25 mg tablet,extended release 24 hr 50 mg PO QDAY 04/30/23 [History Confirmed 10/26/24] alendronate 35 mg tablet 35 mg PO QWEEK 12/03/23 [History Confirmed 10/26/24] calcium 250 mg (as citrate)-vitamin D3 5 mcg (200 unit) tablet 1 tab PO BID 12/03/23 [History Confirmed 10/26/24] letrozole 2.5 mg tablet (Femara) 2.5 mg PO QDAY 12/03/23 [History Confirmed 10/26/24] naproxen sodium 220 mg tablet (Aleve) 220 mg PO QHSPRN 12/03/23 [History Confirmed 10/26/24] calcium phosphate-vitamin D3 250 mg calcium-250 unit chewable tablet 1 tab PO QDAY 03/30/24 [History Confirmed 10/26/24] lisinopril 5 mg tablet 5 mg PO QDAY 03/30/24 [History Confirmed 10/26/24] vit C-vit F-iyxkkn-uqhjtfub capsule 1 cap PO QDAY 03/30/24 [History Confirmed 10/26/24] MA Intake Visit Data Collection New Patient or Established: Established Patient (seen at [facility] within 3 years) Seen by Clinical Staff ONLY (RN/OTNIA): No Reason for Visit:: F/U POST OP SEROMA Pain Present Currently: No Vp Packaging Required: No PCP or OBGYN visit in last 3 months: Yes Hx Now: No Do You Feel Safe at Home: Yes Authorities Contacted: N/A Smoking Status Smoking Status: Never smoker Immunization / Flu Flu Vaccine in the Last 12 Months: No Flu Vaccine Exclusion Criteria: No Exclusion Criteria Past Medical History Past Medical History NEUROLOGIC: Negative Neurological Disorders or Seizures CARDIAC: Positive Cardiac Disorders, Coronary Artery Disease (stents 2019), Edema (sometimes right ankle), Hypertension and Varicose Veins; Negative Congestive Heart Failure RESPIRATORY: Negative Chronic Obstructive Pulmonary Disease (COPD) GASTROINTESTINAL: Positive Gastrointestinal Disorders and Obesity; Negative Hepatitis GENITOURINARY: Negative Genitourinary Disorders or Renal Disease REPRODUCTIVE: Positive Breast Cancer (Left, right breast past) and Previous Pregnancies MUSCULOSKELETAL: Positive Arthritis ENT: Negative Cataracts ENDOCRINE: Positive Endocrine Disorders, Hypoglycemia, Hyperthyroidism and Hypothyroidism; Negative Diabetes Mellitus Type 1 or Diabetes Mellitus Type 2 HEMATOLOGIC: Negative Blood Disorders OTHER HISTORY: Positive Hospitalization (surgery), Chemotherapy, Radiation Therapy (2010 right breast), Chicken Pox, Measles, Cancer and Breast Cancer (Left, right breast past); Negative Shingles, Blood Transfusions, Anesthesia Reactions, Organ Transplant or MRSA Family History FAMILY HISTORY: Positive Family Cancer and Family Surgery; Negative Family Psychiatric Problems, Family Respiratory Disorders, Family Cardiac Disorders, Family Gastrointestinal Problems or Family Anesthesia Reaction Surgical History SURGICAL: Positive Coronary Stent, Mastectomy and Lumpectomy; Negative Endocrine Surgery (hypothyroidism), Thyroidectomy, Ear Surgery, Tympanostomy Tube, Eye Surgery, Nose Surgery, Oral Surgery, Tonsillectomy, Ad enoidectomy, Cochlear Implant, Corneal Transplant, Throat Surgery, Abdominal Surgery, Tracheostomy, Gastric Bypass Surgery, Gastrostomy, Bowel Surgery, Nephrectomy, Transurethral Resection, Neurologic Surgery, Brain Shunt, Vasectomy or Organ Transplant Social History SMOKING STATUS: Smoking status: Never smoker SECOND HAND EXPOSURE: second hand exposure: No ALCOHOL: Alcohol Intake: Never HOUSING: Housing: House HPI HPI Narrative 69F with HTN, HLD, hypothyroidism, CAD, left breast CA s/p lumpectomy with SLNB 04/01/23 followed by chemoradiation, with symptomatic left breast hematoma s/p I&D 12/04/23 here for planned follow up. Pt reports feeling well overall, with no new complaints and the wound is continuing to gradually contract. She received her order for a surveillance mammogram and plans to call to schedule it today ROS Review of Systems Systems Reviewed: All systems reviewed, normal except as documented Objective/Exam General General Appearance: alert, cooperative and well groomed Chest Chest inspection: Present other (left upper outer breast cavity with beefy red granulation tissue, no erythema, no fluctuance or drainage) Resp Respiratory exam: Absent respiratory distress Assessment & Plan Diagnosis / Problem List (1) Postoperative seroma: Status: Acute Qualifiers: Laterality: left Assessment & Plan: 69F with HTN, HLD, hypothyroidism, CAD, left breast CA s/p lumpectomy with SLNB 04/01/23 followed by chemoradiation, with symptomatic left breast hematoma s/p I&D 12/04/23 here for planned follow up, continuing to heal gradually Advanced Care Planning Advance care planning discussed with:: patient Office Procedures GNS Level of Care Nursing/Assessment Patient Status: Established Patient Nursing Assessment/Reassesment: Medication Reconciliation, Update PMH in EMR and Vital Signs Coordination of Care: Complex Care and Chronic Disease 1-5, Consent,records obtained, informed consent, Education Simp Pt/Fam and Staff clarify orders Established Patient Charge Established Patient Point Assignment: 85 Established Patient Point Charge: EP Level 3 (80-115) Patient Portal Questionaires Social History Living Situation History Housing: House Tobacco History Smoking Status: Never smoker Second Hand Smoke Exposure: No Alcohol History Alcohol Intake: Never Domestic Abuse History Do You Feel Safe at Home: Yes Review of Systems Report any current symptoms Only answer those that you have currently: Past Medical History Past Medical History Have you ever been diagnosed with any of the following: Neurological Problems Seizures: No Cardiology Problems Coronary Artery Disease: Yes (stents 2019) Congestive Heart Failure: No Edema: Yes (sometimes right ankle) Hypertension: Yes Varicose Veins: Yes Respiratory Problems Chronic Obstructive Pulmonary Disease (COPD): No Stomache/Intestinal Problems Hepatitis: No Obesity: Yes Genital/Urinary Problems Renal Disease: No Reproductive Problems Breast Cancer: Yes (Left, right breast past) Previous Pregnancies: Yes Musculoskeletal Problems Arthritis: Yes Head,Eye,Nose,Throat Problems Cataracts: No Endocrine Problems Diabetes Mellitus Type 1: No Diabetes Mellitus Type 2: No Hypoglycemia: Yes Hyperthyroidism: Yes Hypothyroidism: Yes Other Problems Hospitalization: Yes (surgery) Shingles: No Blood Transfusions: No Anesthesia Reactions: No Organ Transplant: No Chemotherapy: Yes Radiation Therapy: Yes (2010 right breast) MRSA: No Chicken Pox: Yes Measles: Yes Cancer: Yes Surgical History Thyroidectomy: No
== END 2024-10-26 09:19 | disposition home or self-care (01) ==
PROVIDERS: PCP Family Medicine; Referring Provider Family Medicine; Supervising Provider Surgery; Visit Provider Surgery
DX: Z09 Encounter for follow-up examination after completed treatment for conditions other than malignant neoplasm (principal); Z87.898 Personal history of other specified conditions; Z98.890 Other specified postprocedural states
CPT/HCPCS: 99213; G0463

== ENCOUNTER → 2024-10-27 | Outpatient (CLI) | payer MEDICARE, BC, SELFPAY | END | disposition home or self-care (01) | LOC: SWHD 09:45 | PROVIDERS: PCP Family Medicine; Referring Provider Family Medicine; Visit Provider Student in an Organized Health Care Education/Training Program | DX: T81.89XA Other complications of procedures, not elsewhere classified, initial encounter (principal); L59.8 Other specified disorders of the skin and subcutaneous tissue related to radiation; I25.119 Atherosclerotic heart disease of native coronary artery with unspecified angina pectoris; I10 Essential (primary) hypertension; E78.5 Hyperlipidemia, unspecified; G92.9 Unspecified toxic encephalopathy; M47.9 Spondylosis, unspecified; I25.10 Atherosclerotic heart disease of native coronary artery without angina pectoris | CPT/HCPCS: 11042; A9270 ==

== ENCOUNTER → 2024-11-03 | Outpatient (CLI) | payer MEDICARE, BC, SELFPAY | END | disposition home or self-care (01) | PROVIDERS: PCP Family Medicine; Referring Provider Family Medicine; Visit Provider Surgery | DX: T81.89XA Other complications of procedures, not elsewhere classified, initial encounter (principal); L59.8 Other specified disorders of the skin and subcutaneous tissue related to radiation; I25.119 Atherosclerotic heart disease of native coronary artery with unspecified angina pectoris; I10 Essential (primary) hypertension; E78.5 Hyperlipidemia, unspecified; G92.9 Unspecified toxic encephalopathy; G47.9 Sleep disorder, unspecified; I25.10 Atherosclerotic heart disease of native coronary artery without angina pectoris | CPT/HCPCS: 11042; A9270 ==

== ENCOUNTER → 2024-11-09 | Outpatient (CLI) | payer MEDICARE, BC, SELFPAY ==
--- NOTE | 2024-11-09 14:30 | XR_ITS ---
Examination: Screening digital mammography, bilateral Computer aided detection 3-D breast Tomosynthesis, bilateral Date and time of exam: November 09, 2024 1412 hours Compared to mammograms dating to November 14, 2021 Indication: Screening Technique: Nonmagnified MLO, CC views of the breasts to been obtained, reconstructed from 3-D Tomosynthesis images. R2 computer aided detection program utilized for evaluation of suspicious masses and/or abnormal calcifications. 3-D Tomosynthesis images obtained. Findings: Scattered areas of fibroglandular density Findings most consistent with scar formation and implant in the left breast, clinical correlation advised Breast biopsy marker versus surgical clips upper right breast Extensive scar formation left breast in this patient with history right breast carcinoma 2010 left breast carcinoma 2022 Impression: BI-RADS Category 0: Incomplete: Need additional imaging evaluation Recommend baseline bilateral breast sonography follow-up
== END | disposition home or self-care (01) ==
LOC: CDIM 14:01
PROVIDERS: Referring Provider Internal Medicine; Visit Provider Internal Medicine
DX: Z12.31 Encounter for screening mammogram for malignant neoplasm of breast (principal); R92.8 Other abnormal and inconclusive findings on diagnostic imaging of breast
CPT/HCPCS: 77063; 77067

== ENCOUNTER → 2024-11-10 | Outpatient (CLI) | payer MEDICARE, BC, SELFPAY | END | disposition home or self-care (01) | LOC: SWHD 09:44 | PROVIDERS: PCP Family Medicine; Referring Provider Family Medicine; Visit Provider Student in an Organized Health Care Education/Training Program | DX: T81.89XA Other complications of procedures, not elsewhere classified, initial encounter (principal); L59.8 Other specified disorders of the skin and subcutaneous tissue related to radiation; I25.119 Atherosclerotic heart disease of native coronary artery with unspecified angina pectoris; I10 Essential (primary) hypertension; E78.5 Hyperlipidemia, unspecified; G92.9 Unspecified toxic encephalopathy; G47.9 Sleep disorder, unspecified; I25.10 Atherosclerotic heart disease of native coronary artery without angina pectoris | CPT/HCPCS: 11042; A9270 ==

== ENCOUNTER → 2024-11-11 | Outpatient (CLI) | payer MEDICARE, BC, SELFPAY ==
--- NOTE | 2024-11-11 08:27 | XR_ITS ---
Examination: Breast ultrasound complete, bilateral Date and time of exam: November 11, 2024 0839 hours INDICATIONS: Personal history left breast cancer and right breast cancer, mammogram November 09, 2024 extensive scar formation left breast Technique: Real-time grayscale ultrasonographic imaging bilateral breasts, including all 4 quadrants as well as nipple retroareolar and axillary regions. Findings: Sonographic images right breast No cystic or solid mass Sonographic images left breast Masslike area extending from 1 to 6:00 position 7.6 x 4.8 x 7.5 cm not seen on the ultrasound April 01, 2023 IMPRESSION: BI-RADS Category 4: Suspicious for malignancy Recommend biopsy of the mass like area left breast described above to exclude recurrent breast carcinoma
== END | disposition home or self-care (01) ==
PROVIDERS: PCP Family Medicine; Referring Provider Internal Medicine; Visit Provider Internal Medicine
DX: N63.25 Unspecified lump in the left breast, overlapping quadrants (principal)
CPT/HCPCS: 76641

== ENCOUNTER 2024-11-16 10:56 | Outpatient (AMB) | payer MEDICARE, BC, SELFPAY ==
[2024-11-16 11:06] VITALS: BP 122/79; PULSE 80; RESP 18; TEMP 36.4; O2SAT 96; BMI 31.5
--- NOTE | 2024-11-16 11:06 | GSCOFFNT_ITS ---
Vital Signs - [facility] 11/16/24 11:06 Height 1.6 m Height Method Stated Weight 80.796 kg Weight Measurement Method Standing Scale BMI 31.5 BP 122/79 Blood Pressure Source Automatic Cuff Blood Pressure Location Right Upper Arm Position Sitting Respiration 18 Pulse 80 Pulse Source Monitor Temp 97.6 F Temp Source Temporal Artery Scan Pulse Oximetry (%) 96 Oxygen Delivery Method Room Air Med/Allergies Allergies & Medications Allergies No Known Allergies Allergy (Verified 11/16/24 11:09) Medication Reconciliation clopidogrel 75 mg tablet 75 mg PO QDAY 02/18/23 [History Confirmed 11/16/24] levothyroxine 50 mcg capsule 50 mcg PO QDAY 02/18/23 [History Confirmed 11/16/24] loratadine 10 mg tablet 10 mg PO QDAY 02/18/23 [History Confirmed 11/16/24] rosuvastatin 20 mg tablet 20 mg PO QDAY 02/18/23 [History Confirmed 11/16/24] metoprolol succinate 25 mg tablet,extended release 24 hr 50 mg PO QDAY 04/30/23 [History Confirmed 11/16/24] alendronate 35 mg tablet 35 mg PO QWEEK 12/03/23 [History Confirmed 11/16/24] calcium 250 mg (as citrate)-vitamin D3 5 mcg (200 unit) tablet 1 tab PO BID 12/03/23 [History Confirmed 11/16/24] letrozole 2.5 mg tablet (Femara) 2.5 mg PO QDAY 12/03/23 [History Confirmed 11/16/24] naproxen sodium 220 mg tablet (Aleve) 220 mg PO QHSPRN 12/03/23 [History Confirmed 11/16/24] calcium phosphate-vitamin D3 250 mg calcium-250 unit chewable tablet 1 tab PO QDAY 03/30/24 [History Confirmed 11/16/24] lisinopril 5 mg tablet 5 mg PO QDAY 03/30/24 [History Confirmed 11/16/24] vit C-vit Q-eaxkue-dzsxmaxu capsule 1 cap PO QDAY 03/30/24 [History Confirmed 0 11/16/24] MA Intake Visit Data Collection New Patient or Established: Established Patient (seen at [facility] within 3 years) Seen by Clinical Staff ONLY (RN/MA): No Reason for Visit:: BREAST MASS Pain Present Currently: No PCP or OBGYN visit in last 3 months: Yes Hx Now: No Do You Feel Safe at Home: Yes Authorities Contacted: N/A Smoking Status Smoking Status: Never smoker Immunization / Flu Flu Vaccine in the Last 12 Months: No Flu Vaccine Exclusion Criteria: No Exclusion Criteria Past Medical History Past Medical History NEUROLOGIC: Negative Neurological Disorders or Seizures CARDIAC: Positive Cardiac Disorders, Coronary Artery Disease (stents 2019), Edema (sometimes right ankle), Hypertension and Varicose Veins; Negative Congestive Heart Failure RESPIRATORY: Negative Chronic Obstructive Pulmonary Disease (COPD) GASTROINTESTINAL: Positive Gastrointestinal Disorders and Obesity; Negative Hepatitis GENITOURINARY: Negative Genitourinary Disorders or Renal Disease REPRODUCTIVE: Positive Breast Cancer (Left, right breast past) and Previous Pregnancies MUSCULOSKELETAL: Positive Arthritis ENT: Negative Cataracts ENDOCRINE: Positive Endocrine Disorders, Hypoglycemia, Hyperthyroidism and Hypothyroidism; Negative Diabetes Mellitus Type 1 or Diabetes Mellitus Type 2 HEMATOLOGIC: Negative Blood Disorders OTHER HISTORY: Positive Hospitalization (surgery), Chemotherapy, Radiation Therapy (2010 right breast), Chicken Pox, Measles, Cancer and Breast Cancer (Left, right breast past); Negative Shingles, Blood Transfusions, Anesthesia Reactions, Organ Transplant or MRSA Family History FAMILY HISTORY: Positive Family Cancer and Family Surgery; Negative Family Psychiatric Problems, Family Respiratory Disorders, Family Cardiac Disorders, Family Gastrointestinal Problems or Family Anesthesia Reaction Surgical History SURGICAL: Positive Coronary Stent, Mastectomy and Lumpectomy; Negative Endocrine Surgery (hypothyroidism), Thyroidectomy, Ear Surgery, Tympanostomy Tube, Eye Surgery, Nose Surgery, Oral Surgery, Tonsillectomy, Adenoidectomy, Cochlear Implant, Corneal Transplant, Throat Surgery, Abdominal Surgery, Tracheostomy, Gastric Bypass Surgery, Gastrostomy, Bowel Surgery, Nephrectomy, Transurethral Resection, Neurologic Surgery, Brain Shunt, Vasectomy or Organ Transplant Social History SMOKING STATUS: Smoking status: Never smoker SECOND HAND EXPOSURE: second hand exposure: No ALCOHOL: Alcohol Intake: Never HOUSING: Housing: House HPI HPI Narrative 69F with HTN, HLD, hypothyroidism, CAD, left breast CA s/p lumpectomy with SLNB 04/01/23 followed by chemoradiation, with symptomatic left breast hematoma s/p I&D 12/04/23 here for follow up. Last week pt underwent mammogram which was nondiagno stic followed by US showing a possible mass in the left breast up to 7.6cm, not seen on previous US. Pt reports feeling well overall; she denies any pain to the breast, denies abdominal pain, headaches and difficulty breathing. She feels the left breast has not changed much in the last year or so, consistently feeling hard diffusely ROS Review of Systems Systems Reviewed: All systems reviewed, normal except as documented Objective/Exam General General Appearance: alert, cooperative and well groomed Chest Chest inspection: Present other (left breast with periareolar induration, no discrete mass palpable, no overlying skin changes, no tenderness) Resp Respiratory exam: Absent respiratory distress Results Mammogram, US reviewed Assessment & Plan Diagnosis / Problem List (1) Left breast mass: Status: Acute Assessment & Plan: 69F with HTN, HLD, hypothyroidism, CAD, left breast CA s/p lumpectomy with SLNB 04/01/23 followed by chemoradiation, with symptomatic left breast hematoma s/p I&D 12/04/23 here for follow up of mammogram/US findings. I explained to pt that image-guided biopsy will be ideal to ensure the area of concern is biopsied, and that I will order stat to hopefully have done within the next few days. If biopsy confirms malignancy pt will require staging workup and likely mastectomy. All questions were answered and pt is agreeable to this plan Orders: Orders US biopsy breast 1 Week N63.20 - Unspecified lump in the left breast, unspecified quadrant Advanced Care Planning Advance care planning discussed with:: patient Office Procedures GNS Level of Care Nursing/Assessment Patient Status: Established Patient Nursing Assessment/Reassesment: Medication Reconciliation, Update PMH in EMR and Vital Signs Coordination of Care: Complex Care and Chronic Disease 1-5, Consent,records obtained, informed consent, Education Simp Pt/Fam, Results/Orders obtained and Staff clarify orders Established Patient Charge Established Patient Point Assignment: 90 Established Patient Point Charge: EP Level 3 (80-115) Patient Portal Questionaires Social History Living Situation History Housing: House Tobacco History Smoking Status: Never smoker Second Hand Smoke Exposure: No Alcohol History Alcohol Intake: Never Domestic Abuse History Do You Feel Safe at Home: Yes Review of Systems Report any current symptoms Only answer those that you have currently: Past Medical History Past Medical History Have you ever been diagnosed with any of the following: Neurological Problems Seizures: No Cardiology Problems Coronary Artery Disease: Yes (stents 2019) Congestive Heart Failure: No Edema: Yes (sometimes right ankle) Hypertension: Yes Varicose Veins: Yes Respiratory Problems Chronic Obstructive Pulmonary Disease (COPD): No Stomache/Intestinal Problems Hepatitis: No Obesity: Yes Genital/Urinary Problems Renal Disease: No Reproductive Problems Breast Cancer: Yes (Left, right breast past) Previous Pregnancies: Yes Musculoskeletal Problems Arthritis: Yes Head,Eye,Nose,Throat Problems Cataracts: No Endocrine Problems Diabetes Mellitus Type 1: No Diabetes Mellitus Type 2: No Hypoglycemia: Yes Hyperthyroidism: Yes Hypothyroidism: Yes Other Problems Hospitalization: Yes (surgery) Shingles: No Blood Transfusions: No Anesthesia Reactions: No Organ Transplant: No Chemotherapy: Yes Radiation Therapy: Yes (2010 right breast) MRSA: No Chicken Pox: Yes Measles: Yes Cancer: Yes Surgical History Thyroidectomy: No
== END 2024-11-16 11:52 | disposition home or self-care (01) ==
LOC: HODSRG 10:56
PROVIDERS: PCP Family Medicine; Referring Provider Family Medicine; Supervising Provider Surgery; Visit Provider Surgery
DX: N63.20 Unspecified lump in the left breast, unspecified quadrant (principal); I10 Essential (primary) hypertension; E78.5 Hyperlipidemia, unspecified; E03.9 Hypothyroidism, unspecified; I25.10 Atherosclerotic heart disease of native coronary artery without angina pectoris
CPT/HCPCS: 99213; G0463

== ENCOUNTER → 2024-11-17 | Outpatient (CLI) | payer MEDICARE, BC, SELFPAY | END | disposition home or self-care (01) | LOC: SWHD 09:42 | PROVIDERS: PCP Family Medicine; Referring Provider Family Medicine; Visit Provider Student in an Organized Health Care Education/Training Program | DX: T81.89XA Other complications of procedures, not elsewhere classified, initial encounter (principal); Y84.2 Radiological procedure and radiotherapy as the cause of abnormal reaction of the patient, or of later complication, without mention of misadventure at the time of the procedure; L59.8 Other specified disorders of the skin and subcutaneous tissue related to radiation; I25.119 Atherosclerotic heart disease of native coronary artery with unspecified angina pectoris; I10 Essential (primary) hypertension; E78.5 Hyperlipidemia, unspecified; G92.9 Unspecified toxic encephalopathy; G47.9 Sleep disorder, unspecified; I25.10 Atherosclerotic heart disease of native coronary artery without angina pectoris | CPT/HCPCS: 11042; A9270 ==

== ENCOUNTER 2024-11-19 07:48 | Outpatient (RCR) | payer MEDICARE, BC, SELFPAY ==
--- NOTE | 2024-11-19 08:53 | CTCFLWUP_ITS ---
[facility] [address] [place], [place] [address] FOLLOW-UP NOTE Date: 11/19/2024 MR#: [id number] Name: NGUYỄN PIZARRO : 1955 Dx: C50.811 Malignant neoplasm of overlapping sites of right female breast Identification. Patient with history of right breast CA stage Ia status post right partial mastectomy sentinel biopsy post radiation therapy completed September 2011 and been on Arimidex for 5 years. New left breast CA lobular type invasive partial mastectomy lymph node biopsy 04/01/2023. Oncotype score was 33. After completing chemo Taxotere Cytoxan 08/14/2023 3990 cGy completed 10/15/2023 to residual left breast tissue. Placed on letrozole for ER receptor positive left breast CA along with alendronate and Citracal. Developed wound in the left breast axillary region which is receiving local care. Ultrasound 11/11/2024 revealed a new masslike area 1 to 6 o'clock position 7.6 x 4.8 x 7.5 cm. This is scheduled for biopsy in December. The outer quadrant of the left breast appears firm. As I see patient today the right breast looks cosmetically satisfactory left breast is receiving wound care in the lateral portion. Assessment #1 stage Ia right breast CA 2011 with low recurrence score receptor positive status post XRT and Arimidex 5 years. #2. Stage Ia receptor positive left breast a lobular invasive with high recurrence score, received postop chemo and XRT 3990 cGy completed 10/15/2023. #3. Receiving wound care left breast axillary region. #4. biopsy pending of ultrasound findings of 11/11/2024. #5. Has scheduled follow-up with Dr. Chester and and Dr. Remy.. .#6. I have scheduled a follow-up with me in 6 months Bilateral ultrasound 11/11/2024 revealed masslike area from 1-6 clock position 7.6 x 4.8 x 7.5 cm not seen on preoperative ultrasound. Biopsy pending. Electronically signed by: Alessio Horne M.D. 11/19/2024 8:50 AM
== END 2024-11-23 23:59 | disposition home or self-care (01) ==
LOC: SCTC 07:48
PROVIDERS: PCP Family Medicine; Referring Provider Radiology Therapeutic Radiology; Visit Provider Radiology Therapeutic Radiology
DX: C50.812 Malignant neoplasm of overlapping sites of left female breast (principal); C50.811 Malignant neoplasm of overlapping sites of right female breast; Z79.811 Long term (current) use of aromatase inhibitors; Z17.0 Estrogen receptor positive status [ER+]; Z17.22 Progesterone receptor negative status; Z17.32 Human epidermal growth factor receptor 2 negative status; Z92.21 Personal history of antineoplastic chemotherapy; Z92.3 Personal history of irradiation; Z90.13 Acquired absence of bilateral breasts and nipples
CPT/HCPCS: 99212; G0463

== ENCOUNTER → 2024-11-24 | Outpatient (CLI) | payer MEDICARE, BC, SELFPAY | END | disposition home or self-care (01) | LOC: SWHD 09:34 | PROVIDERS: PCP Family Medicine; Referring Provider Family Medicine; Visit Provider Student in an Organized Health Care Education/Training Program | DX: T81.89XA Other complications of procedures, not elsewhere classified, initial encounter (principal); Y84.2 Radiological procedure and radiotherapy as the cause of abnormal reaction of the patient, or of later complication, without mention of misadventure at the time of the procedure; L59.8 Other specified disorders of the skin and subcutaneous tissue related to radiation; I25.119 Atherosclerotic heart disease of native coronary artery with unspecified angina pectoris; I10 Essential (primary) hypertension; E78.5 Hyperlipidemia, unspecified; G92.9 Unspecified toxic encephalopathy; G47.9 Sleep disorder, unspecified; I25.10 Atherosclerotic heart disease of native coronary artery without angina pectoris | CPT/HCPCS: 11042; A9270 ==

== ENCOUNTER → 2024-12-01 | Outpatient (CLI) | payer MEDICARE, BC, SELFPAY | END | disposition home or self-care (01) | LOC: SWHD 09:40 | PROVIDERS: PCP Family Medicine; Referring Provider Family Medicine; Visit Provider Student in an Organized Health Care Education/Training Program | DX: T81.89XA Other complications of procedures, not elsewhere classified, initial encounter (principal); Y84.2 Radiological procedure and radiotherapy as the cause of abnormal reaction of the patient, or of later complication, without mention of misadventure at the time of the procedure; L59.8 Other specified disorders of the skin and subcutaneous tissue related to radiation; I25.119 Atherosclerotic heart disease of native coronary artery with unspecified angina pectoris; I10 Essential (primary) hypertension; E78.5 Hyperlipidemia, unspecified; G92.9 Unspecified toxic encephalopathy; G47.9 Sleep disorder, unspecified; I25.10 Atherosclerotic heart disease of native coronary artery without angina pectoris | CPT/HCPCS: 11042; A9270 ==

== ENCOUNTER → 2024-12-07 | Outpatient (CLI) | payer MEDICARE, BC, SELFPAY ==
[2024-12-04 09:57] LABS: Basophils # (Auto) 0.1 Thou/mm3 (0.0-0.2); Basophils % (Auto) 1 % (0-2.5); Eosinophils # (Auto) 0.2 Thou/mm3 (0.0-0.5); Eosinophils % (Auto) 2 % (0-10); Hematocrit 39.6 % (36.0-46.0); Hemoglobin 13.2 g/dL (12.0-16.0); Immature Granulocytes % (Auto) 0 % (0-0); Immature Granulocytes Auto 0.02 Thou/mm3 (0.00-0.00); Lymphocytes # (Auto) 1.9 Thou/mm3 (1.0-4.8); Lymphocytes % (Auto) 28 % (10-50); Mean Corpuscular HGB Conc 33.3 g/dl (31.0-37.0); Mean Corpuscular Hemoglobin 29.7 pg (25.0-35.0); Mean Corpuscular Volume 89 fL (80-100); Monocytes # (Auto) 0.8 Thou/mm3 (0.0-0.8); Monocytes % (Auto) 12 % (0-12); Neutrophils # (Auto) 3.9 Thou/mm3 (1.8-7.7); Neutrophils % (Auto) 57 % (37-80); Nucleated Red Blood Cell % 0 /100 WBC (0); Platelet Count 242 Thou/mm3 (140-440); Red Blood Count 4.45 Miln/mm3 (4.00-5.20); White Blood Count 6.8 Thou/mm3 (3.6-11.0)
[2024-12-04 10:14] LABS: Partial Thromboplastin Time 25.6 Seconds (22.0-36.0); Prothrombin Time 10.9 Seconds (9.0-12.2)
--- NOTE | 2024-12-07 10:30 | XR_ITS ---
Examinations: Ultrasound-guided percutaneous breast biopsy, left breast 4:00 mass Left breast sonography limited. Exam date and time: December 07, 2024 1050 hours INDICATIONS: BI-RADS 4 suspicious mass 1 2 6:00 position left breast on breast sonogram November 11, 2024, personal history left breast cancer. Informed consent provided. Technique: A timeout was completed verifying correct patient, procedure, site, positioning, and special equipment if applicable Informed consent provided. The patient was placed in a supine position for the breast biopsy. Sonographic images of the breast were performed for localization of the suspicious nodule The patient's breast was prepped and draped in sterile fashion. Maximum sterile barrier technique, hand hygiene, ultrasound sterile technique 1% lidocaine was used to anesthetize the skin and breast adjacent to the suspicious nodule. Utilizing ultrasonographic guidance, 8 core biopsies were obtained of the suspicious nodule utilizing an 18-gauge BioPince needle. The specimens appears satisfactory. Estimated blood loss 3 cc. The patient tolerated the procedure well and there were no complications. Impression: Successful ultrasound-guided percutaneous breast biopsy, left breast 1:00 mass. Material sent for cytologic analysis and culture and sensitivity.
== END | disposition home or self-care (01) ==
LOC: SIRX 09:56
PROVIDERS: Radiology Diagnostic Radiology; PCP Internal Medicine; Referring Provider Surgery; Visit Provider Surgery
DX: N60.32 Fibrosclerosis of left breast (principal); C50.912 Malignant neoplasm of unspecified site of left female breast; Z01.812 Encounter for preprocedural laboratory examination
CPT/HCPCS: 19083; 36415; 85025; 85610; 85730; 87070; 87075; 87205

== ENCOUNTER → 2024-12-08 | Outpatient (CLI) | payer MEDICARE, BC, SELFPAY | END | disposition home or self-care (01) | LOC: SWHD 09:40 | PROVIDERS: PCP Family Medicine; Referring Provider Family Medicine; Visit Provider Student in an Organized Health Care Education/Training Program | DX: T81.89XA Other complications of procedures, not elsewhere classified, initial encounter (principal); Y84.2 Radiological procedure and radiotherapy as the cause of abnormal reaction of the patient, or of later complication, without mention of misadventure at the time of the procedure; L59.8 Other specified disorders of the skin and subcutaneous tissue related to radiation; I25.119 Atherosclerotic heart disease of native coronary artery with unspecified angina pectoris; I10 Essential (primary) hypertension; E78.5 Hyperlipidemia, unspecified; G92.9 Unspecified toxic encephalopathy; G47.9 Sleep disorder, unspecified; I25.10 Atherosclerotic heart disease of native coronary artery without angina pectoris | CPT/HCPCS: 11042; A9270 ==

== ENCOUNTER 2024-12-21 09:18 | Outpatient (AMB) | payer MEDICARE, BC, SELFPAY ==
[2024-12-21 09:39] VITALS: BP 128/78; PULSE 83; RESP 18; TEMP 36.2; O2SAT 96; BMI 31.8
--- NOTE | 2024-12-21 09:39 | GSCOFFNT_ITS ---
Vital Signs - [facility] 12/21/24 09:39 Height 1.6 m Height Method Stated Weight 81.675 kg Weight Measurement Method Standing Scale BMI 31.8 BP 128/78 Blood Pressure Source Automatic Cuff Blood Pressure Location Right Upper Arm Position Sitting Respiration 18 Pulse 83 Pulse Source Monitor Temp 97.2 F Temp Source Temporal Artery Scan Pulse Oximetry (%) 96 Oxygen Delivery Method Room Air Med/Allergies Allergies & Medications Allergies No Known Allergies Allergy (Verified 12/21/24 09:42) Medication Reconciliation clopidogrel 75 mg tablet 75 mg PO QDAY 02/18/23 [History Confirmed 12/21/24] levothyroxine 50 mcg capsule 50 mcg PO QDAY 02/18/23 [History Confirmed 12/21/24] loratadine 10 mg tablet 10 mg PO QDAY 02/18/23 [History Confirmed 12/21/24] rosuvastatin 20 mg tablet 20 mg PO QDAY 02/18/23 [History Confirmed 12/21/24] metoprolol succinate 25 mg tablet,extended release 24 hr 50 mg PO QDAY 04/30/23 [History Confirmed 12/21/24] alendronate 35 mg tablet 35 mg PO QWEEK 12/03/23 [History Confirmed 12/21/24] calcium 250 mg (as citrate)-vitamin D3 5 mcg (200 unit) tablet 1 tab PO BID 12/03/23 [History Confirmed 12/21/24] letrozole 2.5 mg tablet (Femara) 2.5 mg PO QDAY 12/03/23 [History Confirmed 12/21/24] naproxen sodium 220 mg tablet (Aleve) 220 mg PO QHSPRN 12/03/23 [History Confirmed 12/21/24] calcium phosphate-vitamin D3 250 mg calcium-250 unit chewable tablet 1 tab PO QDAY 03/30/24 [History Confirmed 12/21/24] lisinopril 5 mg tablet 5 mg PO QDAY 03/30/24 [History Confirmed 12/21/24] vit C-vit I-beckmo-dxukauba capsule 1 cap PO QDAY 03/30/24 [History Confirmed 0 12/21/24] MA Intake Visit Data Collection New Patient or Established: Established Patient (seen at [facility] within 3 years) Reason for Visit:: POST OP Pain Present Currently: No Pain Scale Used: Myriam/Numerical Enrollment Counselor Required: No PCP or OBGYN visit in last 3 months: Yes Hx Now: No Do You Feel Safe at Home: Yes Authorities Contacted: N/A Smoking Status Smoking Status: Never smoker Immunization / Flu Flu Vaccine in the Last 12 Months: Yes Flu Vaccine Exclusion Criteria: Already Received Past Medical History Past Medical History NEUROLOGIC: Negative Neurological Disorders or Seizures CARDIAC: Positive Cardiac Disorders, Coronary Artery Disease (stents 2019), Edema (sometimes right ankle), Hypertension and Varicose Veins; Negative Congestive Heart Failure RESPIRATORY: Negative Chronic Obstructive Pulmonary Disease (COPD) GASTROINTESTINAL: Positive Gastrointestinal Disorders and Obesity; Negative Hepatitis GENITOURINARY: Negative Genitourinary Disorders or Renal Disease REPRODUCTIVE: Positive Breast Cancer (Left, right breast past) and Previous Pregnancies MUSCULOSKELETAL: Positive Arthritis ENT: Negative Cataracts ENDOCRINE: Positive Endocrine Disorders, Hypoglycemia, Hyperthyroidism and Hypothyroidism; Negative Diabetes Mellitus Type 1 or Diabetes Mellitus Type 2 HEMATOLOGIC: Negative Blood Disorders OTHER HISTORY: Positive Hospitalization (surgery), Chemotherapy, Radiation Therapy (2010 right breast), Chicken Pox, Measles, Cancer and Breast Cancer (Left, right breast past); Negative Shingles, Blood Transfusions, Anesthesia Reactions, Organ Transplant or MRSA Family History FAMILY HISTORY: Positive Family Cancer and Family Surgery; Negative Family Psychiatric Problems, Family Respiratory Disorders, Family Cardiac Disorders, Family Gastrointestinal Problems or Family Anesthesia Reaction Surgical History SURGICAL: Positive Coronary Stent, Mastectomy and Lumpectomy; Negative Endocrine Surgery (hypothyroidism), Thyroidectomy, Ear Surgery, Tympanostomy Tube, Eye Surgery, Nose Surgery, Oral Surgery, Tonsillectomy, Adenoidectomy, Cochlear Implant, Corneal Transplant, Throat Surgery, Abdominal Surgery, Tracheostomy, Gastric Bypass Surgery, Gastrostomy, Bowel Surgery, Nephrectomy, Transurethral Resection, Neurologic Surgery, Brain Shunt, Vasectomy or Organ Transplant Social History SMOKING STATUS: Smoking status: Never smoker SECOND HAND EXPOSURE: second hand exposure: No SUBSTANCE USE: Substance use type: does not use ALCOHOL: Alcohol Intake: Never HOUSING: Housing: House Travel Risk Travel Hx Recent Travel: No HPI HPI Narrative 69F with HTN, HLD, hypothyroidism, CAD, left breast CA s/p lumpectomy with SLNB 04/01/23 followed by chemoradiation, with symptomatic left breast hematoma s/p I&D 12/04/23 here for follow up. Since last visit pt underwent percutaneous biopsy of left breast mass which was negative for dysplasia or malignancy. She is feeling well overall, with the wound stable and is planned for PET tomorrow and MRI in the coming weeks ROS Review of Systems Systems Reviewed: All systems reviewed, normal except as documented Objective/Exam General General Appearance: alert, cooperative and well groomed Chest Chest inspection: Present other (left upper outer breast wound with beefy red granulation tissue at base, no surrounding erythema, no fluctuance or tenderness) Resp Respiratory exam: Absent respiratory distress Results Pathology result of left breast biopsy reviewed Assessment & Plan Diagnosis / Problem List (1) Postoperative seroma: Status: Acute Qualifiers: Laterality: left Assessment & Plan: 69F with HTN, HLD, hypothyroidism, CAD, left breast CA s/p lumpectomy with SLNB 04/01/23 followed by chemoradiation, with symptomatic left breast hematoma s/p I&D 12/04/23 here for follow up, with recent biopsy of left breast lesion negative for dysplasia or malignancy Plan: F/u PET, MRI Appreciate wound care management F/u in 2 mos Advanced Care Planning Advance care planning discussed with:: patient and spouse Office Procedures GNS Level of Care Nursing/Assessment Patient Status: Established Patient Nursing Assessment/Reassesment: Medication Reconciliation, Update PMH in EMR and Vital Signs Coordination of Care: Complex Care and Chronic Disease 1-5, Education Complex Pt/Fam, Consent,records obtained, informed consent, Results/Orders obtained and Staff clarify orders Established Patient Charge Established Patient Point Assignment: 95 Established Patient Point Charge: EP Level 3 (80-115) Patient Portal Questionaires Social History Living Situation History Housing: House Tobacco History Smoking Status: Never smoker Second Hand Smoke Exposure: No Alcohol History Alcohol Intake: Never Domestic Abuse History Do You Feel Safe at Home: Yes Review of Systems Report any current symptoms Only answer those that you have currently: Past Medical History Past Medical History Have you ever been diagnosed with any of the following: Neurological Problems Seizures: No Cardiology Problems Coronary Artery Disease: Yes (stents 2019) Congestive Heart Failure: No Edema: Yes (sometimes right ankle) Hypertension: Yes Varicose Veins: Yes Respiratory Problems Chronic Obstructive Pulmonary Disease (COPD): No Stomache/Intestinal Problems Hepatitis: No Obesity: Yes Genital/Urinary Problems Renal Disease: No Reproductive Problems Breast Cancer: Yes (Left, right breast past) Previous Pregnancies: Yes Musculoskeletal Problems Arthritis: Yes Head,Eye,Nose,Throat Problems Cataracts: No Endocrine Problems Diabetes Mellitus Type 1: No Diabetes Mellitus Type 2: No Hypoglycemia: Yes Hyperthyroidism: Yes Hypothyroidism: Yes Other Problems Hospitalization: Yes (surgery) Shingles: No Blood Transfusions: No Anesthesia Reactions: No Organ Transplant: No Chemotherapy: Yes Radiation Therapy: Yes (2010 right breast) MRSA: No Chicken Pox: Yes Measles: Yes Cancer: Yes Surgical History Thyroidectomy: No
== END 2024-12-21 10:22 | disposition home or self-care (01) ==
LOC: HODSRG 09:18
PROVIDERS: PCP Family Medicine; Referring Provider Family Medicine; Supervising Provider Surgery; Visit Provider Surgery
DX: L76.34 Postprocedural seroma of skin and subcutaneous tissue following other procedure (principal); Y84.9 Medical procedure, unspecified as the cause of abnormal reaction of the patient, or of later complication, without mention of misadventure at the time of the procedure
CPT/HCPCS: 99213; G0463

== ENCOUNTER → 2024-12-22 | Outpatient (CLI) | payer MEDICARE, BC, SELFPAY | END | disposition home or self-care (01) | PROVIDERS: PCP Family Medicine; Referring Provider Family Medicine; Visit Provider Student in an Organized Health Care Education/Training Program | DX: L59.8 Other specified disorders of the skin and subcutaneous tissue related to radiation (principal); T81.89XA Other complications of procedures, not elsewhere classified, initial encounter; Y84.2 Radiological procedure and radiotherapy as the cause of abnormal reaction of the patient, or of later complication, without mention of misadventure at the time of the procedure; E03.9 Hypothyroidism, unspecified; C50.912 Malignant neoplasm of unspecified site of left female breast; Z17.0 Estrogen receptor positive status [ER+]; Z17.22 Progesterone receptor negative status; Z17.32 Human epidermal growth factor receptor 2 negative status; I10 Essential (primary) hypertension; I25.10 Atherosclerotic heart disease of native coronary artery without angina pectoris; G62.9 Polyneuropathy, unspecified | CPT/HCPCS: 11042; A9270 ==

== ENCOUNTER → 2024-12-22 | Outpatient (CLI) | payer MEDICARE, BC, SELFPAY ==
--- NOTE | 2024-12-22 08:45 | XR_ITS ---
EXAMINATION: PET/CT FUSION SKULL TO THIGH EXAM DATE AND TIME: December 22, 2024 0952 hours Comparison breast biopsy December 07, 2024, breast sonography November 11, 2024, mammogram November 09, 2024 INDICATIONS: Diagnosis right breast cancer 2010, left breast cancer 2022 CTDI:vol (mGy) 6.66 DLP: (mGycm) 680 PROCEDURE: 15.8 mCi FDG was administered intravenously To allow for distribution and uptake of radiotracer, the patient was allowed to rest quietly in a shielded room. Imaging was performed on an integrated 16-slice PET/CT scanner, with scanning from the skull base to the mid thigh. Serum blood glucose at the time of the injection was measured 128 mg/dL. CT scanning was performed without oral or intravenous contrast material. FINDINGS: Head and Neck: There is no nakia hypermetabolism in the neck. The visualized portions of the brain are normal in appearance on CT. Chest: Hypermetabolic architectural distortion left breast in the 2 to 6:00 position, 6 cm in transverse dimension, 2 cm in AP dimension Fluid containing mass 6:00 position left breast 5.6 cm weakly hypermetabolic Surgical clip in the left exam Abdomen and Pelvis: There is no nakia hypermetabolism in retroperitoneal or pelvic chains. The spleen is normal in size and FDG avidity. 4 mm left renal calculus Musculoskeletal: Marrow uptake is within normal range. IMPRESSION: Hypermetabolic architectural distortion left breast in the 2:00 to 6:00 position, 6 cm in transverse dimension, 2 cm in AP dimension 6:00 left breast seroma 5.6 cm No metastatic mediastinal lymphadenopathy no metastatic pulmonary nodules No findings of metastatic disease in the abdomen or pelvis
== END | disposition home or self-care (01) ==
PROVIDERS: PCP Internal Medicine; Referring Provider Internal Medicine Hematology & Oncology; Visit Provider Internal Medicine Hematology & Oncology
DX: R92.8 Other abnormal and inconclusive findings on diagnostic imaging of breast (principal); C50.811 Malignant neoplasm of overlapping sites of right female breast; C50.512 Malignant neoplasm of lower-outer quadrant of left female breast
CPT/HCPCS: 78815; A9552

== ENCOUNTER 2024-12-23 11:48 | Outpatient (RCR) | payer MEDICARE, BC, SELFPAY | END 2024-12-23 23:59 | disposition home or self-care (01) | LOC: SWHD 11:48 | PROVIDERS: PCP Family Medicine; Referring Provider Family Medicine; Visit Provider Student in an Organized Health Care Education/Training Program | DX: I96 Gangrene, not elsewhere classified (principal); L97.512 Non-pressure chronic ulcer of other part of right foot with fat layer exposed; L97.514 Non-pressure chronic ulcer of other part of right foot with necrosis of bone; E11.40 Type 2 diabetes mellitus with diabetic neuropathy, unspecified; I10 Essential (primary) hypertension; I25.10 Atherosclerotic heart disease of native coronary artery without angina pectoris; Z87.891 Personal history of nicotine dependence | CPT/HCPCS: 11042; G0277 ==

== ENCOUNTER → 2025-01-01 | Outpatient (CLI) | payer MEDICARE, BC, SELFPAY ==
[2025-01-01 08:50] LABS: Basophils % (Auto) 1 % (0-2.5); Eosinophils # (Auto) 0.2 Thou/mm3 (0.0-0.5); Eosinophils % (Auto) 3 % (0-10); Hematocrit 40.2 % (36.0-46.0); Hemoglobin 13.4 g/dL (12.0-16.0); Immature Granulocytes % (Auto) 1 % (0-0); Immature Granulocytes Auto 0.04 Thou/mm3 (0.00-0.00); Lymphocytes # (Auto) 1.8 Thou/mm3 (1.0-4.8); Lymphocytes % (Auto) 28 % (10-50); Mean Corpuscular HGB Conc 33.3 g/dl (31.0-37.0); Mean Corpuscular Hemoglobin 30.2 pg (25.0-35.0); Mean Corpuscular Volume 91 fL (80-100); Monocytes # (Auto) 0.7 Thou/mm3 (0.0-0.8); Monocytes % (Auto) 11 % (0-12); Neutrophils # (Auto) 3.7 Thou/mm3 (1.8-7.7); Neutrophils % (Auto) 58 % (37-80); Nucleated Red Blood Cell % 0 /100 WBC (0); Platelet Count 247 Thou/mm3 (140-440); RDW Standard Deviation 43.9 fL (36.4-46.3); Red Blood Count 4.43 Miln/mm3 (4.00-5.20); White Blood Count 6.4 Thou/mm3 (3.6-11.0)
[2025-01-01 09:01] LABS: Glucose Estimated Average 148 mg/dL (80-131); Hemoglobin A1C 6.8 % Hgb (4.8-6.0)
[2025-01-01 09:10] LABS: Alanine Aminotransferase 52 U/L (10-49); Albumin, Serum 4.7 gm/dL (3.4-4.8); Albumin/Globulin Ratio 1.9 (1.2-2.2); Alkaline Phosphatase 73 U/L (46-116); Anion Gap 7 (7-16); Aspartate Amino Transferase 53 U/L (0-34); BUN/Creatinine Ratio 16 Ratio (12-20); Bilirubin,Total 0.6 mg/dL (0.3-1.2); Blood Urea Nitrogen 13 mg/dL (9-23); Calcium 9.3 mg/dL (8.3-10.6); Calcium (Corrected) 9.3 mg/dL (8.5-10.1); Carbon Dioxide 28.3 mMol/L (20.0-31.0); Cardiac Risk Estimate 2.9 RATIO (3.7-5.6); Chloride 104 mMol/L (98-107); Cholesterol 146 mg/dL (132-200); Creatinine (Component) 0.8 mg/dL (0.6-1.3); Globulin 2.5 gm/dL (2.3-3.5); Glucose 150 mg/dL (74-106); HDL Cholesterol 50 mg/dL (40-60); LDL Cholesterol,Calculated 59 mg/dL (0-130); Osmolality,Calculated 280 (275-295); Potassium 4.8 mMol/L (3.4-5.1); Sodium 139 mMol/L (136-145); Thyroid Stimulating Hormone 0.62 uIU/mL (0.55-4.78); Total Protein 7.2 gm/dL (5.7-8.2); Triglycerides 183 mg/dL (30-150); eGFR > 60 See Note
== END | disposition home or self-care (01) ==
PROVIDERS: PCP Family Medicine; Referring Provider Internal Medicine; Visit Provider Internal Medicine
DX: I10 Essential (primary) hypertension (principal); Z85.3 Personal history of malignant neoplasm of breast
CPT/HCPCS: 36415; 80053; 80061; 83036; 84443; 85025

== ENCOUNTER → 2025-01-05 | Outpatient (CLI) | payer MEDICARE, BC, SELFPAY ==
--- NOTE | 2025-01-05 12:00 | XR_ITS ---
Examination: MRI breasts without intravenous contrast MRI breast with intravenous contrast Exam date and time: January 05, 2025 1402 hours Comparison PET/CT scan December 22, 2024, bilateral breast sonography November 11, 2024, mammogram November 09, 2024 INDICATIONS: Right breast carcinoma history 2010 left breast carcinoma history 2022, left breast currently draining, PET/CT scan December 22, 2024 hypermetabolic architectural distortion left breast 2 to 6:00 position, 6:00 left breast seroma 5.6 cm TECHNIQUE AND FINDINGS: Bilateral breast MRI imaging pre and post 15 cc gadolinium Scattered areas of fibroglandular density Minimal background breast enhancement Focus of architectural distortion 2 to 5:00 position left breast with irregular margins lateral left 6 cm fluid collection consistent with seroma in the 6:00 position left breast Kinetic analysis curves and post intravenous ministration 15 cc gadolinium Demonstrate rapid wash-in in the focus of architectural distortion lateral left breast No pathologic lymphadenopathy No right breast mass IMPRESSION: BI-RADS Category 2: Benign findings Signal characteristics and enhancement curves favor benign scarring in the left breast as described above Large benign-appearing seroma 6:00 position left breast Recommend 3 month follow-up left breast sonography with the radiologist in attendance, to compare with the November 11, 2024 left breast sonogram
== END | disposition home or self-care (01) ==
PROVIDERS: PCP Family Medicine; Referring Provider Internal Medicine Hematology & Oncology; Visit Provider Internal Medicine Hematology & Oncology
DX: R92.8 Other abnormal and inconclusive findings on diagnostic imaging of breast (principal); N64.89 Other specified disorders of breast; C50.811 Malignant neoplasm of overlapping sites of right female breast; C50.512 Malignant neoplasm of lower-outer quadrant of left female breast
CPT/HCPCS: 77049; A9579; C8908

== ENCOUNTER 2025-01-12 08:21 | Outpatient (RCR) | payer MEDICARE, BC, SELFPAY ==
--- NOTE | 2024-12-29 06:28 | CTCFLWUP_ITS ---
Patient: ASHANTI WOLF : 1955 Page 3 of 5 FOLLOW UP NOTE DATE OF SERVICE: 12/28/2024 NAME: ASHANTI WOLF ACCOUNT: [id number] : 1955 AGE: 69 INTERVAL HISTORY: Summary-- Ashanti, a female with history of bilateral breast cancer (right 2010, left 2022), presented for follow-up of breast mass and non-healing left breast biopsy site. Recent biopsy showed scar tissue, while PET scan revealed hypermetabolic architecture distortion (6cm) with seroma but no cancer. She began hyperbaric oxygen therapy for radiation-damaged tissue. Plan includes scheduled MRI, referral to Dr. Garay for second opinion, consideration of Ashly blood test for minimal residual disease, continued hyperbaric therapy, and plastic surgery evaluation for possible skin flap if ulcers remain non-healing. Chief Complaint Follow-up for breast mass, non-healing biopsy site on left breast History of Present Illness Ashanti Wolf, a patient with a history of breast cancer in both breasts (right in 2010, left in 2022), presents for follow-up regarding a breast mass and chronic ulcers. She recently underwent a breast biopsy and PET scan, with an MRI scheduled for next week. The patient had a breast biopsy on December 07, ordered by Dr. Morgan and performed under ultrasound by Dr. Maldonado. The biopsy site on the left breast has not healed properly, which is attributed to radiation damage. The biopsy results showed scar tissue. Currently, there is a small spot still present at the biopsy site, though it is healing. The patient began hyperbaric oxygen therapy last week to improve blood flow to the area, as [facility]. A recent PET scan revealed hypermetabolic architecture distortion in the left breast, measuring 6 cm in transverse dimension, with seroma present but no evidence of cancer. The mass-like area extending 7.6 by 4.8 cm was not visible on the ultrasound in 2022. This area has been monitored with mammograms and ultrasounds every 6 months. The patient underwent surgery in March 2023 for her left breast cancer. The patient's chronic ulcers on the left breast remain a concern, with the possibility of requiring a skin flap if they continue to be non-healing. The non-healing nature of the wounds could be attributed to either radiation effects or potential cancer recurrence. Medical History - Chronic ulcers of the left valve - Breast cancer in the left breast - Breast cancer in the right breast Surgical History - Left breast surgery in March 2023 - Right breast cancer surgery in 2010 - Breast biopsy on December 07, 2024, performed by Dr. Maldonado under ultrasound guidance Social History - Insurance: Medicare and Status4 Supplemental Review of Systems Skin: Positive for chronic ulcers of the left valve, non-healing biopsy site. Physical Examination Skin: Small spot present at biopsy site on left breast. Biopsy site showing signs of healing. Laboratory, Imaging, and Diagnostic Test Results - Breast biopsy (12/07/2024): Showed scar tissue - PET scan: Hypermetabolic architecture distortion in the left breast, 6 cm in transverse dimension, seroma present, no cancer detected - Ultrasound (2022): Mass-like area extending 7.6 by 4.8 cm not seen ONCOLOGY HISTORY: DIAGNOSIS: ?CloneDiagnosis? Malignant neoplasm of overlapping sites of right female breast [ICD10] C50.811; Malignant neoplasm of lower-outer quadrant of left female breast [ICD10] C50.512; Oth disrd of bone density and structure, unspecified site [ICD10] M85.80 DATE OF DIAGNOSIS: 05/25/2011 STAGE/TNM: IA T1b N0 M0 TREATMENT HISTORY: Care?Plan Start?Date Cycle Day Intent DOCEtaxel?75,?Cyclophosphamide?600 05/14/2023 1 21 Curative?(adjuvant) Zoledronic?Acid?4?mg?adjuvant 08/11/2024 1 180 Maintenance HISTORY OF PRESENT ILLNESS: OTHER MEDICAL HISTORY/CONDITIONS: HTN Hyperlipdemia Hypothyroid Right breast cancer - Dx 2010 Chronic back pain Left breast cancer - 01/25/2023 Lumbar radiiculapathy Right breast lumpectomy with axillary node dissection - 2009 Lumbar laminectomy - 11/07/2022 Coronary stents x 4 - 2019 ?Clone Other Med Hx? FAMILY HISTORY: Father: Colon - Dx age 70; Basal cell skin cancer Sibling:?Sister?Gastric?-?Dx?-?age?59 ?Clone Family Hx? 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 Tobacco?Use:?Denies ETOH?Use:?Rarely Drug?Note:?Denies Social?History?Note:?Lives?wtih? ?Clone Social Hx? 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 MEDICATIONS: 1. anastrozole - 1 mg 1 tab Daily 2. Centrum Silver Women - 8 mg iron-400 mcg-50 mcg 1 tab Daily 3. Citracal + D Slow Release - 600 mg-12.5 mcg (500 unit) 1 tab one tab po q daily 4. clopidogrel - 75 mg 1 tab Daily 5. Femara - 2.5 mg 1 tab one po q daily 6. levothyroxine - 25 mcg 1 tab Daily 7. lisinopril - 10 mg 1 tab Daily 8. lisinopril - 5 mg 1 tab Daily 9. loratadine - 10 mg 1 tab Continuously 10. metoprolol succinate - 50 mg 1 tab Daily 11. Ocuvite Lutein - 1 Capsule Daily 12. rosuvastatin - 20 mg 1 tab Daily 13. TylenoL - 500 mg Capsule As needed?Palabra Meds? Medications Last Reconciled by oRsalee Laura MA on 12/28/2024 ALLERGIES: No Known Drug Allergies REVIEW OF SYSTEMS: A complete 14-point review of systems was performed and is negative except as noted in interval history. PHYSICAL EXAMINATION: VITAL SIGNS: Temperature?99.9, B/P?108/70, Oxygen?Saturation?97% Weight?181?lbs PAIN: 0 - No pain GENERAL APPEARANCE: Appears well, in no apparent distress, appropriately interactive. HEENT: Normocephalic, no temporal wasting, normal conjunctiva, no scleral icterus, normal hearing, lips without lesions, neck normal range of motion. CARDIOVASCULAR: Not assessed. PULMONARY: Normal respiratory effort, no respiratory distress or use of accessory muscles, speaking in full sentences, no tachypnea. EXTREMITIES: No pedal edema or cyanosis. SKIN: Normal skin appearance. NEUROLOGIC: Alert and oriented x4. PSHYCHIATRIC: Appropriate affect, mood normal, behavior normal, intact thought and speech. Breast shows nonhealing lesion LABORATORY DATA: I have personally reviewed and interpreted each of the patient?s relevant lab tests, abnormal findings are below: Date 02/17/24 08/10/24 12/04/24 ??WHITE?BLOOD?COUNT?(Thou/mm3) ? 5.7 6.8 ??RED?BLOOD?COUNT?(Miln/mm3) ? 4.19 4.45 ??HEMOGLOBIN?(gm/dl) ? 12.6 13.2 ??HEMATOCRIT?(%) ? 37.6 39.6 ??PLATELET?COUNT?(Thou/mm3) ? 201 242 ??NEUTROPHILS?%,?AUTO?(%) ? 58 57 ??LYMPH?%,?AUTO?(%) ? 26 28 ??NEUTROPHILS,?AUTO?(Thou/mm3) ? 3.3 3.9 ??GLUCOSE,RANDOM?(mg/dL) 124?H 115?H ? ??BLOOD?UREA?NITROGEN?(mg/dL) 12 14 ? ??CREATININE?(mg/dL) 0.70 0.70 ? ??SODIUM?(mmol/L) 136 139 ? ??POTASSIUM?(mmol/L) 4.4 4.5 ? ??CHLORIDE?(mmol/L) 103 103 ? ??CrCl?(CandG)?(ml/min) 77.97 77.58 ? ??AST/SGOT?(Unit/L) 34 40?H ? ??ALT/SGPT?(Unit/L) 32 43 ? ??ALKALINE?PHOSPHATASE?(Unit/L) 82 73 ? ??BILIRUBIN,?TOTAL?(mg/dL) 0.6 0.6 ? ??PROTEIN?TOTAL?(gm/dl) 7.4 6.9 ? ??ALBUMIN,?SERUM?(gm/dl) 4.7 4.5 ? ??GLOBULIN?(gm/dl) 2.7 2.4 ? ??ALBUMIN/GLOBULIN?RATIO 1.7 1.9 ? ??CALCIUM,?SERUM?(mg/dL) 10.7?H 10.3 ? ??CALCIUM?SERUM?(CORRECTED)?(mg/dL) 10.7?H 10.3?H ? ASSESSMENT/PLAN: Ashanti Wolf, a female patient with a history of breast cancer in the right breast in 2010 and left breast in 2022, presents for follow-up of a breast mass and chronic ulcers of the left breast Breast mass Assessment: Patient underwent a breast biopsy on December 07, ordered by Dr. Morgan and performed under ultrasound by Dr. Maldonado. The biopsy showed scar tissue. A PET scan revealed hypermetabolic architecture distortion in the left breast, measuring 6 cm in transverse dimension, with seroma but no evidence of cancer. An MRI is scheduled for next week. The mass-like area extending 7.6 by 4.8 cm was not seen on the ultrasound in 2022. This area has been monitored with mammograms and ultrasounds every 6 months since the surgery in March 2023. Plan: - MRI scheduled for next Saturday - Referral to Dr. Garay (breast surgeon) for second opinion - Dr. Garay to review MRI results - Consider Ashly blood test for minimal residual disease (MRD) - Requires old samples from both breasts - Follow up with [facility] in 2 weeks if not contacted regarding appointments Chronic ulcers of the left breast assessment: Patient has chronic ulcers of the left breast e, with the biopsy site not healing due to radiation damage. Patient started hyperbaric oxygen therapy last week as suggested by Dr[facility] to improve blood flow. Plan: - Continue hyperbaric oxygen therapy - Referral to plastic surgeon for evaluation - Consider skin flap if wound remains non-healing - Await Dr. Garay' opinion on healing if scar tissue is confirmed ORDERS: Order # Description [id number] Infusion 1 Hour [id number] Infusion 1 Hour [id number] Infusion 1 Hour [id number] Infusion 1 Hour [id number] Infusion 1 Hour RETURN TO CLINIC: 4 weeks BILLING AND COMPLIANCE: I reviewed external records from providers outside my specialty as summarized above. I spent a total of 50 minutes on this patient?s care on the day of their visit excluding time spent related to any billed procedures. This time includes time spent with the patient as well as time spent documenting in the medical record, reviewing patients records and tests, obtaining history, placing orders, communicating with other healthcare professionals, counseling the patient, family or caregiver, and/or care coordination for the diagnoses above. Electronically Signed by: Terrell Chester MD T: 6:25 AM CC: Rupesh?Marina,? PCP: Carlee Gray Referring: Carlee Gray This document was completed utilizing speech recognition software. Grammatical errors, random word insertions, pronoun errors, and incomplete sentences are an occasional consequence of this system due to software limitations, ambient noise, and hardware issues. Any formal questions or concerns about the content, text or information contained within the body of this dictation should be directly addressed to the provider for clarification.
== END 2025-01-23 23:59 | disposition home or self-care (01) ==
LOC: SCTC 08:21
PROVIDERS: PCP Family Medicine; Referring Provider Family Medicine; Visit Provider Internal Medicine Hematology & Oncology
DX: N64.89 Other specified disorders of breast (principal); N63.20 Unspecified lump in the left breast, unspecified quadrant; Z85.3 Personal history of malignant neoplasm of breast
CPT/HCPCS: 36415; 36591; 77049; 80053; 80061; 83036; 84443; 85025; 99212; A4216; A9579; J1642; C8908; G0463

== ENCOUNTER 2025-01-22 12:55 | Outpatient (RCR) | payer MEDICARE, BC, SELFPAY | END 2025-01-23 23:59 | disposition home or self-care (01) | LOC: SWHD 12:55 | PROVIDERS: PCP Family Medicine; Referring Provider Family Medicine; Visit Provider Student in an Organized Health Care Education/Training Program | DX: L59.8 Other specified disorders of the skin and subcutaneous tissue related to radiation (principal); Y84.2 Radiological procedure and radiotherapy as the cause of abnormal reaction of the patient, or of later complication, without mention of misadventure at the time of the procedure; T81.89XA Other complications of procedures, not elsewhere classified, initial encounter; E03.9 Hypothyroidism, unspecified; C50.912 Malignant neoplasm of unspecified site of left female breast; Z17.0 Estrogen receptor positive status [ER+]; I10 Essential (primary) hypertension; I25.10 Atherosclerotic heart disease of native coronary artery without angina pectoris; G62.9 Polyneuropathy, unspecified | CPT/HCPCS: 15271; 17250 ×3; A9270; G0277 ==

== ENCOUNTER 2025-01-23 08:19 | Emergency (ER) | payer MEDICARE, BC, SELFPAY ==
[2025-01-23 08:32] VITALS: BP 147/88; PULSE 82; RESP 18; TEMP 36.8; O2SAT 95; BMI 31.0
--- NOTE | 2025-01-23 08:33 | EDNOTE_ITS ---
<Statement entered by Cata Pastrana MD - 02/02/25 00:57> As co-signing physician, I was present and available for consult prn. I concur with the plan and care as documented by the midlevel provider. ED Wound/Laceration-RME/HPI General Chief Complaint: Wound/Laceration Stated Complaint: laceration to the left side of her head Time Seen by Provider: 01/23/25 08:33 Arrival date/time: 01/23/25 08:19 This is a 69-year-old female that comes into the emergency room with complaints of laceration to the left side of her head above the left ear. Patient states that she was putting some post outside and hit herself in the head with a metal post. Patient states she finished her work before coming to the emergency room. Patient has no loss of consciousness. Patient has a small laceration. Patient has a history of CAD and has had stents done to her heart. Patient currently off Plavix patient also has a history of high blood sugar, hyperlipidemia, hypothyroidism, breast cancer. Related Data Home Medications ?Medication ?Instructions ?Recorded ?Confirmed clopidogrel 75 mg tablet 75 mg PO QDAY 02/18/2312/21 levothyroxine 50 mcg capsule 50 mcg PO QDAY 02/18/23 0 12/21/24 loratadine 10 mg tablet 10 mg PO QDAY 02/18/2312/21 rosuvastatin 20 mg tablet 20 mg PO QDAY 02/18/2312/21 metoprolol succinate 25 mg 50 mg PO QDAY 04/30/2311/25 tablet,extended release 24 hr alendronate 35 mg tablet 35 mg PO QWEEK 12/03/2311/25 calcium 250 mg (as 1 tab PO BID 12/03/23 citrate)-vitamin D3 5 mcg (200 unit) tablet letrozole 2.5 mg tablet (Femara) 2.5 mg PO QDAY 12/21/24 naproxen sodium 220 mg tablet 220 mg PO QHSPRN 12/21/24 (Aleve) calcium phosphate-vitamin D3 250 1 tab PO QDAY 12/21/24 mg calcium-250 unit chewable tablet lisinopril 5 mg tablet 5 mg PO QDAY 03/30/24 vit C-vit O-[id number]-kswmtsxc capsule 1 cap PO QDAY 01/1612/21/24 Allergies Allergy/AdvReac Type Severity Reaction Status Date / Time No Known Allergies Allergy Verified 01/23/25 08:21 Review of Systems Review of Systems Systems Reviewed: All systems reviewed, normal except as documented Past Medical History Past Medical History Comments PMH COMMENT: See HPI ED Exam Narrative Physical exam: VITAL SIGNS: Reviewed. GENERAL APPEARANCE: Alert and interactive, follows commands, no acute distress HEAD AND FACE: Small approximately 1 cm laceration to left side of head above the left ear. ENT: PERRL, pink conjunctivitis, eyelid no trauma, Mucous membrane moist. NECK: Supple, nontender, no nuchal rigidity. CHEST: No tenderness, no crepitus, no paradoxical movement, no retractions. LUNGS: breathing even and unlabored HEART: Regular rate, cap refill less than 2 seconds ABDOMEN: Soft, nondistended, no guarding, nontender, no rebound, no masses, NEUROLOGICAL: Gross motor function intact sensory function intact, Appropriate for age. MUSCULOSKELETAL: low back nontender, full range of motion. EXTREMITIES: No redness no swelling no skin breakdown on bilateral foot and leg. Distal neurovascular status intact bilateral foot SKIN: Color pink, dry. Course Quality Measures none Orders Category Date Time Status Cleanse Wound NEEDED Care 01/23/25 08:[address] head/brain wo con Stat Exams 01/23/25 08:54 Completed TET,DIP/PERT AC (Adult)-Tdap [Boostrix Adult (Tdap) Med 01/23/25 08:54 Discont inued Vacc] 0.5 ml IMI .ONCE ONE Vital Signs Vital signs: Vital Signs Temperature 98.2 F 01/23/25 08:32 Pulse Rate 82 01/23/25 08:32 Respiratory Rate 18 01/23/25 08:32 Blood Pressure 147/88 H 01/23/25 08:32 Pulse Oximetry (%) 95 01/23/25 08:32 Oxygen Delivery Method Room Air 01/23/25 08:32 Procedures -ED Laceration Laceration 1: Site: other (head) Side (If applicable): left Size (cm): 2 Description: irregular Depth: simple, single layer Local Anesthetic: lidocaine 1% Amount of anesthesia used (mL): 2 Pre-repair: wound explored and irrigated extensively Skin layer closed with: nylon Suture size (cm): 3-0 Number of sutures: 2 Technique: simple, interrupted Wound / Laceration MDM Narrative MDM Narrative:: ct head: Findings: No significant ventricular enlargement. Intra-axial or extra-axial hemorrhage density is not seen. No mass effect or midline shift Basal cisterns are not remarkable. Fourth ventricle is midline. Cranial vault intact. Impression: Negative for acute hemorrhage, mass effect or midline shift The laceration to left side of head sutured. Patient states she could not get sutures because she can not have metal in body because she is going through hy perbaric chamber for wound health from recent procedure Sensation is intact. There is full range of motion. There is no exposed tendons. No foreign bodies. Lidocaine 1% was used for anesthesia. The wound was irrigated extensively with normal saline. Sutures were placed. A dressing was placed. There were no complications. Patient was educated to clean daily with soap and water. Patient was educated to return for any signs of infection including swelling, pain, redness, pus, or fever and instructed to make an appointment with primary care provider in 48 hours. Patient was educated to follow-up with primary or return to the emergency room for suture removal in the next 7 to 10 days. Patient verbalized understanding. Patient data External records reviewed:: [facility] previous records Clinical information provided by:: patient Social determinants that could affect healthcare access:: none Patient has the following chronic illnesses:: see hpi How is presenting disease/condition affected by chronic disease/condition?: uneffected by Evaluation data The following diagnostics were reviewed and interpreted by me:: radiology exam(s) Lab and/or radiology exams considered but not ordered:: none Interpretation Summary: see note Medications / Prescriptions Medications or Prescriptions considered but not ordered:: none Medication administrations:: Medication Administration History Discontinued Medications Diphtheria/Tetanus/Acell Pertussis (Diphth,Pertuss(Acell),Tet Vac 0.5 Ml Syr- Adult) 0.5 ml IMi .ONCE ONE Stop: 01/23/25 08:55 Last Admin: 01/23/25 09:00 Dose: 0.5 ml Documented By: see [facility] Consultations Consultation(s) initiated? (list below): No Diagnosis Wound Differential Diagnosis: laceration, abrasion, avulsion of skin and other (contusion ) Most likely diagnosis given after review of the tests above:: scalp laceration Admission Indicated Admission indicated?: not indicated Admission Request Was there a request for admission?: No Disposition Plan Disposition Plan: Discharge Discharge Attestation Discharge Attestation: The patient and all family members were given an opportunity to ask questions and understood the discharge instructions. Discharge instructions specifically effects, indications for sooner follow up or return to the emergency department, and the expected course of current diagnosis. Patient condition: Stable Discharge Plan Plan Patient Disposition: HOME (Self Care) Patient condition on transfer: Stable Prescriptions/Referrals Prescriptions/Med Rec: No Action clopidogrel 75 mg tablet 75 mg PO QDAY levothyroxine 50 mcg capsule 50 mcg PO QDAY rosuvastatin 20 mg tablet 20 mg PO QDAY loratadine 10 mg tablet 10 mg PO QDAY alendronate 35 mg Tablet 35 mg PO QWEEK naproxen sodium [Aleve] 220 mg Tablet 220 mg PO QHSPRN letrozole [Femara] 2.5 mg Tablet 2.5 mg PO QDAY calcium citrate-vitamin D3 250 mg-5 mcg (200 unit) Tablet 1 tab PO BID lisinopril 5 mg tablet 5 mg PO QDAY Patient Comments: TAKE 1 TABLET BY MOUTH DAILY vit C-vit G-oqfdul-zycmvste Capsule 1 cap PO QDAY calcium phosphate-vitamin D3 250 mg calcium- 250 unit Tablet,Chewable 1 tab PO QDAY metoprolol succinate 25 mg tablet extended release 24 hr 50 mg PO QDAY Patient Comments: TAKE 1 TABLET BY MOUTH EVERY DAY Referrals: Gurpreet Chi [Primary Care Provider] - In 1 week Problem List Clinical Impression: Head injury, Scalp laceration Patient/Caregiver Discharge Instructions Discharge Activity: activity as tolerated Education Materials: ED Head Injury (Adult), ED Laceration: All Closures Additional Instructions: Follow up with primary provider in 1-2 days. Come back to ED if symptoms change or worsen. Sutures can come out in 7 days. There is 2 of a Print Language: Slovenian Stand Alone Forms: Nannette Award Info., Patient Portal Info Letter PA/ALTERATIONS WORKROOM CLERK Supervising Physician PA/ALTERATIONS WORKROOM CLERK Supervising Physician: navarro
--- NOTE | 2025-01-23 08:54 | XR_ITS ---
Examination: CT brain head without contrast. 2-D sagittal coronal reconstructions Date and time of exam:January 23, 2025 at 0933 hrs. Indications: Injury to the left side of the head today with laceration and head pain CTDI: vol (mGy):48.8 DLP: (mGycm):915 Technique: Multiple CT axial sections of the brain have been obtained, 5 mm slice thickness. Contrast has not been administered. 2-D sagittal, coronal reconstructions have been obtained Low dose protocols were performed. One or more of the following dose reduction techniques were used; automated exposure control, adjustment of the mA and/or KV according to patient size, use of iterative reconstruction technique. Findings: No significant ventricular enlargement. Intra-axial or extra-axial hemorrhage density is not seen. No mass effect or midline shift Basal cisterns are not remarkable. Fourth ventricle is midline. Cranial vault intact. Impression: Negative for acute hemorrhage, mass effect or midline shift
[2025-01-23] MEDS: DIPHTH,PERTUSS(ACELL),TET VAC 0.5 ML SYR- ADULT IMi (09:00)
--- NOTE | 2025-01-23 12:57 | PC.NURSE ---
PT'S WOUND BEHIND L EAR CLEANSED WITH WOUND CLEANSER. RA Wilson NP MADE AWARE.
== END 2025-01-23 13:42 | disposition home or self-care (01) ==
PROVIDERS: Emergency Provider Emergency Medicine; PCP Internal Medicine
DX: S01.01XA Laceration without foreign body of scalp, initial encounter (principal); W22.8XXA Striking against or struck by other objects, initial encounter; I25.10 Atherosclerotic heart disease of native coronary artery without angina pectoris; Z95.5 Presence of coronary angioplasty implant and graft; E78.5 Hyperlipidemia, unspecified; E03.9 Hypothyroidism, unspecified; Z85.3 Personal history of malignant neoplasm of breast; Z23 Encounter for immunization
CPT/HCPCS: 12011; 70450; 90471; 90715; 99284

== ENCOUNTER 2025-02-08 13:01 | Outpatient (RCR) | payer MEDICARE, BC, SELFPAY ==
[2025-02-05 08:56] LABS: Basophils % (Auto) 1 % (0-2.5); Eosinophils # (Auto) 0.1 Thou/mm3 (0.0-0.5); Eosinophils % (Auto) 2 % (0-10); Hematocrit 34.8 % (36.0-46.0); Hemoglobin 12.2 g/dL (12.0-16.0); Immature Granulocytes % (Auto) 0 % (0-0); Immature Granulocytes Auto 0.02 Thou/mm3 (0.00-0.00); Lymphocytes # (Auto) 1.5 Thou/mm3 (1.0-4.8); Lymphocytes % (Auto) 30 % (10-50); Mean Corpuscular HGB Conc 35.1 g/dl (31.0-37.0); Mean Corpuscular Hemoglobin 30.5 pg (25.0-35.0); Mean Corpuscular Volume 87 fL (80-100); Monocytes # (Auto) 0.5 Thou/mm3 (0.0-0.8); Monocytes % (Auto) 10 % (0-12); Neutrophils # (Auto) 2.8 Thou/mm3 (1.8-7.7); Neutrophils % (Auto) 57 % (37-80); Nucleated Red Blood Cell % 0 /100 WBC (0); Platelet Count 220 Thou/mm3 (140-440); RDW Standard Deviation 45.1 fL (36.4-46.3); White Blood Count 4.9 Thou/mm3 (3.6-11.0)
[2025-02-05 09:13] LABS: Alanine Aminotransferase 33 U/L (10-49); Albumin, Serum 4.5 gm/dL (3.4-4.8); Alkaline Phosphatase 59 U/L (46-116); Anion Gap 10 (7-16); Aspartate Amino Transferase 34 U/L (0-34); BUN/Creatinine Ratio 19 Ratio (12-20); Bilirubin,Total 0.7 mg/dL (0.3-1.2); Blood Urea Nitrogen 13 mg/dL (9-23); Calcium 9.5 mg/dL (8.3-10.6); Calcium (Corrected) 9.5 mg/dL (8.5-10.1); Carbon Dioxide 25.5 mMol/L (20.0-31.0); Chloride 104 mMol/L (98-107); Creatinine (Component) 0.7 mg/dL (0.6-1.3); Globulin 2.2 gm/dL (2.3-3.5); Glucose 118 mg/dL (74-106); Osmolality,Calculated 278 (275-295); Sodium 139 mMol/L (136-145); Total Protein 6.7 gm/dL (5.7-8.2); eGFR > 60 See Note
[2025-02-05 09:23] LABS: CA 15-3 7.2 U/mL (<32.4)
== END 2025-02-22 23:59 | disposition home or self-care (01) ==
LOC: SCTC 13:01
PROVIDERS: Internal Medicine Hematology & Oncology; PCP Family Medicine; Referring Provider Family Medicine; Visit Provider Radiology Therapeutic Radiology
DX: C50.812 Malignant neoplasm of overlapping sites of left female breast (principal); Z17.0 Estrogen receptor positive status [ER+]; Z17.22 Progesterone receptor negative status; Z17.32 Human epidermal growth factor receptor 2 negative status; N64.89 Other specified disorders of breast; L98.499 Non-pressure chronic ulcer of skin of other sites with unspecified severity; Z79.811 Long term (current) use of aromatase inhibitors
CPT/HCPCS: 36591; 80053; 85025; 86300; 96365; A4216; J1642; J3489

== ENCOUNTER 2025-02-22 07:49 | Outpatient (RCR) | payer MEDICARE, BC, SELFPAY | END 2025-02-22 23:59 | disposition home or self-care (01) | LOC: SWHD 07:49 | PROVIDERS: PCP Family Medicine; Referring Provider Family Medicine; Visit Provider Student in an Organized Health Care Education/Training Program | DX: L59.8 Other specified disorders of the skin and subcutaneous tissue related to radiation (principal); T81.89XA Other complications of procedures, not elsewhere classified, initial encounter; Y84.2 Radiological procedure and radiotherapy as the cause of abnormal reaction of the patient, or of later complication, without mention of misadventure at the time of the procedure; E03.9 Hypothyroidism, unspecified; C50.912 Malignant neoplasm of unspecified site of left female breast; I10 Essential (primary) hypertension; I25.10 Atherosclerotic heart disease of native coronary artery without angina pectoris; G52.9 Cranial nerve disorder, unspecified | CPT/HCPCS: 17250 ×4; A9270; G0277 ==

== ENCOUNTER 2025-02-22 10:03 | Outpatient (AMB) | payer MEDICARE, BC, SELFPAY ==
[2025-02-22 10:12] VITALS: BP 135/89; PULSE 75; RESP 18; TEMP 36.1; O2SAT 94; BMI 31.1
--- NOTE | 2025-02-22 10:12 | GSCOFFNT_ITS ---
Vital Signs - [facility] 02/22/25 10:12 Height 1.6 m Height Method Stated Weight 79.889 kg Weight Measurement Method Standing Scale BMI 31.1 BP 135/89 H Blood Pressure Source Automatic Cuff Blood Pressure Location Right Upper Arm Position Sitting Respiration 18 Pulse 75 Pulse Source Monitor Temp 96.9 F Temp Source Temporal Artery Scan Pulse Oximetry (%) 94 L Oxygen Delivery Method Room Air Med/Allergies Allergies & Medications Allergies No Known Allergies Allergy (Verified 02/22/25 10:14) Medication Reconciliation clopidogrel 75 mg tablet 75 mg PO QDAY 02/18/23 [History Confirmed 02/22/25] levothyroxine 50 mcg capsule 50 mcg PO QDAY 02/18/23 [History Confirmed 02/22/25] loratadine 10 mg tablet 10 mg PO QDAY 02/18/23 [History Confirmed 02/22/25] rosuvastatin 20 mg tablet 20 mg PO QDAY 02/18/23 [History Confirmed 02/22/25] metoprolol succinate 25 mg tablet,extended release 24 hr 50 mg PO QDAY 04/30/23 [History Confirmed 02/22/25] alendronate 35 mg tablet 35 mg PO QWEEK 12/03/23 [History Confirmed 02/22/25] calcium 250 mg (as citrate)-vitamin D3 5 mcg (200 unit) tablet 1 tab PO BID 12/03/23 [History Confirmed 02/22/25] letrozole 2.5 mg tablet (Femara) 2.5 mg PO QDAY 12/03/23 [History Confirmed 02/22/25] naproxen sodium 220 mg tablet (Aleve) 220 mg PO QHSPRN 12/03/23 [History Confirmed 02/22/25] calcium phosphate-vitamin D3 250 mg calcium-250 unit chewable tablet 1 tab PO QDAY 03/30/24 [History Confirmed 02/22/25] lisinopril 5 mg tablet 5 mg PO QDAY 03/30/24 [History Confirmed 02/22/25] vit C-vit [id number]-[id number] capsule 1 cap PO QDAY 03/30/24 [History Confirmed 02/22/25] MA Intake Visit Data Collection New Patient or Established: Established Patient (seen at [facility] within 3 years) Reason for Visit:: F/U POST OP Pain Present Currently: No Pain Scale Used: Myriam/Numerical [employer] Enforcement Officer Required: No PCP or OBGYN visit in last 3 months: Yes Hx Now: No Do You Feel Safe at Home: Yes Authorities Contacted: N/A Smoking Status Smoking Status: Never smoker Immunization / Flu Flu Vaccine in the Last 12 Months: Yes Flu Vaccine Exclusion Criteria: Already Received Past Medical History Past Medical History NEUROLOGIC: Negative Neurological Disorders or Seizures CARDIAC: Positive Cardiac Disorders, Coronary Artery Disease (stents 2019), Edema (sometimes right ankle), Hypertension and Varicose Veins; Negative Congestive Heart Failure RESPIRATORY: Negative Chronic Obstructive Pulmonary Disease (COPD) GASTROINTESTINAL: Positive Gastrointestinal Disorders and Obesity; Negative Hepatitis GENITOURINARY: Negative Genitourinary Disorders or Renal Disease REPRODUCTIVE: Positive Breast Cancer (Left, right breast past) and Previous Pregnancies MUSCULOSKELETAL: Positive Arthritis ENT: Negative Cataracts ENDOCRINE: Positive Endocrine Disorders, Hypoglycemia, Hyperthyroidism and Hypothyroidism; Negative Diabetes Mellitus Type 1 or Diabetes Mellitus Type 2 HEMATOLOGIC: Negative Blood Disorders OTHER HISTORY: Positive Hospitalization (surgery), Chemotherapy, Radiation Therapy (2010 right breast), Chicken Pox, Measles, Cancer and Breast Cancer (Left, right breast past); Negative Shingles, Blood Transfusions, Anesthesia Reactions, Organ Transplant or MRSA Family History FAMILY HISTORY: Positive Family Cancer and Family Surgery; Negative Family Psychiatric Problems, Family Respiratory Disorders, Family Cardiac Disorders, Family Gastrointestinal Problems or Family Anesthesia Reaction Surgical History SURGICAL: Positive Coronary Stent, Mastectomy and Lumpectomy; Negative Endocrine Surgery (hypothyroidism), Thyroidectomy, Ear Surgery, Tympanostomy Tube, Eye Surgery, Nose Surgery, Oral Surgery, Tonsillectomy, Adenoidectomy, Cochlear Implant, Corneal Transplant, Throat Surgery, Abdominal Surgery, Tracheostomy, Gastric Bypass Surgery, Gastrostomy, Bowel Surgery, Nephrectomy, Transurethral Resection, Neurologic Surgery, Brain Shunt, Vasectomy or Organ Transplant Social History SMOKING STATUS: Smoking status: Never smoker SECOND HAND EXPOSURE: second hand exposure: No SUBSTANCE USE: Substance use type: does not use ALCOHOL: Alcohol Intake: Never HOUSING: Housing: House Travel Risk Travel Hx Recent Travel: No HPI HPI Narrative 69F with HTN, HLD, hypothyroidism, CAD, left breast CA s/p lumpectomy with SLNB 04/01/23 followed by chemoradiation, with symptomatic left breast hematoma s/p I&D 12/04/23 here for follow up. Pt reports feeling well overall, she is undergoing hyperbaric oxygen therapy and also receiving special dressings at [facility]ound [facility] and the wound is noticeably contracted compared to previous visits. She has no new complaints ROS Review of Systems Systems Reviewed: All systems reviewed, normal except as documented Objective/Exam General General Appearance: alert, cooperative and well groomed Chest Chest inspection: Present other (left upper outer breast wound healing well with epithelialized tissue, no erythema, no fluctuance or drainage) Resp Respiratory exam: Absent respiratory distress Assessment & Plan Diagnosis / Problem List (1) Postoperative seroma: Status: Acute Qualifiers: Laterality: left Assessment & Plan: 69F with HTN, HLD, hypothyroidism, CAD, left breast CA s/p lumpectomy with SLNB 04/01/23 followed by chemoradiation, with symptomatic left breast hematoma s/p I&D 12/04/23 here for follow up, overall recovering well but with delayed wound healing being managed expertly at our wound care center Plan: Follow up in 2 months Advanced Care Planning Advance care planning discussed with:: patient Office Procedures GNS Level of Care Nursing/Assessment Patient Status: Established Patient Nursing Assessment/Reassesment: Medication Reconciliation, Update PMH in EMR and Vital Signs Coordination of Care: Complex Care and Chronic Disease 1-5, Education Complex Pt/Fam, Consent,records obtained, informed consent, Results/Orders obtained and Staff clarify orders Established Patient Charge Established Patient Point Assignment: 95 Established Patient Point Charge: EP Level 3 (80-115) Patient Portal Questionaires Social History Living Situation History Housing: House Tobacco History Smoking Status: Never smoker Second Hand Smoke Exposure: No Alcohol History Alcohol Intake: Never Domestic Abuse History Do You Feel Safe at Home: Yes Review of Systems Report any current symptoms Only answer those that you have currently: Past Medical History Past Medical History Have you ever been diagnosed with any of the following: Neurological Problems Seizures: No Cardiology Problems Coronary Artery Disease: Yes (stents 2019) Congestive Heart Failure: No Edema: Yes (sometimes right ankle) Hypertension: Yes Varicose Veins: Yes Respiratory Problems Chronic Obstructive Pulmonary Disease (COPD): No Stomache/Intestinal Problems Hepatitis: No Obesity: Yes Genital/Urinary Problems Renal Disease: No Reproductive Problems Breast Cancer: Yes (Left, right breast past) Previous Pregnancies: Yes Musculoskeletal Problems Arthritis: Yes Head,Eye,Nose,Throat Problems Cataracts: No Endocrine Problems Diabetes Mellitus Type 1: No Diabetes Mellitus Type 2: No Hypoglycemia: Yes Hyperthyroidism: Yes Hypothyroidism: Yes Other Problems Hospitalization: Yes (surgery) Shingles: No Blood Transfusions: No Anesthesia Reactions: No Organ Transplant: No Chemotherapy: Yes Radiation Therapy: Yes (2011 right breast) MRSA: No Chicken Pox: Yes Measles: Yes Cancer: Yes Surgical History Thyroidectomy: No
== END 2025-02-22 10:43 | disposition home or self-care (01) ==
LOC: HODSRG 10:03
PROVIDERS: Supervising Provider Surgery; Visit Provider Surgery
DX: L76.34 Postprocedural seroma of skin and subcutaneous tissue following other procedure (principal); Y84.9 Medical procedure, unspecified as the cause of abnormal reaction of the patient, or of later complication, without mention of misadventure at the time of the procedure
CPT/HCPCS: 99213; G0463

== ENCOUNTER → 2025-03-12 | Outpatient (CLI) | payer MEDICARE, BC, SELFPAY ==
[2025-03-12 08:37] LABS: Basophils # (Auto) 0.0 Thou/mm3 (0.0-0.2); Basophils % (Auto) 1 % (0-2.5); Eosinophils # (Auto) 0.2 Thou/mm3 (0.0-0.5); Eosinophils % (Auto) 3 % (0-10); Hematocrit 38.1 % (36.0-46.0); Hemoglobin 12.8 g/dL (12.0-16.0); Immature Granulocytes Auto 0.01 Thou/mm3 (0.00-0.00); Lymphocytes # (Auto) 1.6 Thou/mm3 (1.0-4.8); Lymphocytes % (Auto) 31 % (10-50); Mean Corpuscular HGB Conc 33.6 g/dl (31.0-37.0); Mean Corpuscular Hemoglobin 30.3 pg (25.0-35.0); Mean Corpuscular Volume 90 fL (80-100); Monocytes # (Auto) 0.6 Thou/mm3 (0.0-0.8); Monocytes % (Auto) 11 % (0-12); Neutrophils # (Auto) 2.8 Thou/mm3 (1.8-7.7); Neutrophils % (Auto) 54 % (37-80); Nucleated Red Blood Cell # 0.00 Thou/mm3 (0.00-0.00); Nucleated Red Blood Cell % 0 /100 WBC (0); Platelet Count 215 Thou/mm3 (140-440); RDW Standard Deviation 44.4 fL (36.4-46.3); Red Blood Count 4.23 Miln/mm3 (4.00-5.20); White Blood Count 5.2 Thou/mm3 (3.6-11.0)
[2025-03-12 09:01] LABS: Alanine Aminotransferase 41 U/L (10-49); Albumin, Serum 4.9 gm/dL (3.4-4.8); Albumin/Globulin Ratio 2.0 (1.2-2.2); Alkaline Phosphatase 66 U/L (46-116); Anion Gap 7 (7-16); Aspartate Amino Transferase 45 U/L (0-34); BUN/Creatinine Ratio 14 Ratio (12-20); Bilirubin,Total 0.7 mg/dL (0.3-1.2); Blood Urea Nitrogen 13 mg/dL (9-23); Calcium 10.3 mg/dL (8.3-10.6); Calcium (Corrected) 10.3 mg/dL (8.5-10.1); Carbon Dioxide 27.6 mMol/L (20.0-31.0); Chloride 104 mMol/L (98-107); Creatinine (Component) 0.9 mg/dL (0.6-1.3); Globulin 2.5 gm/dL (2.3-3.5); Glucose 143 mg/dL (74-106); Osmolality,Calculated 279 (275-295); Potassium 5.1 mMol/L (3.4-5.1); Sodium 139 mMol/L (136-145); Total Protein 7.4 gm/dL (5.7-8.2); eGFR > 60 See Note
[2025-03-12 09:06] LABS: CA 15-3 9.4 U/mL (<32.4)
== END | disposition home or self-care (01) ==
PROVIDERS: PCP Internal Medicine; Referring Provider Internal Medicine Hematology & Oncology; Visit Provider Internal Medicine Hematology & Oncology
DX: C50.512 Malignant neoplasm of lower-outer quadrant of left female breast (principal); C50.811 Malignant neoplasm of overlapping sites of right female breast; M85.80 Other specified disorders of bone density and structure, unspecified site
CPT/HCPCS: 36415; 80053; 85025; 86300

== ENCOUNTER 2025-03-18 13:31 | Outpatient (RCR) | payer MEDICARE, BC, SELFPAY ==
--- NOTE | 2025-03-22 06:42 | CTCFLWUP_ITS ---
Patient: ASHANTI WOLF : 1955 Page 3 of 6 FOLLOW UP NOTE DATE OF SERVICE: 03/18/2025 NAME: ASHANTI WOLF ACCOUNT: [id number] : 1955 AGE: 69 INTERVAL HISTORY: Summary-- Ashanti, a female with history of bilateral breast cancer (right 2010, left 2022), presented for follow-up of breast mass and non-healing left breast biopsy site. Recent biopsy showed scar tissue, while PET scan revealed hypermetabolic architecture distortion (6cm) with seroma but no cancer. She began hyperbaric oxygen therapy for radiation-damaged tissue Patient follows with Dr. Parrish take calcium 6 calcium and bisphosphonates. Patient have Kayla completed. Chief Complaint Follow-up for breast mass, non-healing biopsy site on left breast History of Present Illness Ashanti Wolf, a patient with a history of breast cancer in both breasts (right in 2010, left in 2022), presents for follow-up regarding a breast mass and chronic ulcers. She recently underwent a breast biopsy and PET scan, with an MRI scheduled for next week. The patient had a breast biopsy on December 07, ordered by Dr. Morgan and performed under ultrasound by Dr. Maldonado. The biopsy site on the left breast has not healed properly, which is attributed to radiation damage. The biopsy results showed scar tissue. Currently, there is a small spot still present at the biopsy site, though it is healing. The patient began hyperbaric oxygen therapy last week to improve blood flow to the area, as suggested by [facility]. A recent PET scan revealed hypermetabolic architecture distortion in the left breast, measuring 6 cm in transverse dimension, with seroma present but no evidence of cancer. The mass-like area extending 7.6 by 4.8 cm was not visible on the ultrasound in 2022. This area has been monitored with mammograms and ultrasounds every 6 months. The patient underwent surgery in March 2023 for her left breast cancer. The patient's recent Ashly testing for breast cancer recurrence came back negative. She has been adhering to her prescribed treatment regimens, including taking Cetraxal daily and receiving bone-strengthening infusions twice a year. Ashanti has been diagnosed with diabetes and is currently taking metformin 500 mg, which has improved her glucose levels to the 100s range. She reports stopping soda consumption, though she occasionally indulges while ensuring proper hydration. Ashanti's calcium levels are slightly elevated, which may be due to dehydration or overconsumption of calcium supplements. She has been advised to increase her water intake to address potential dehydration issues. The patient has also been diagnosed with osteopenia based on a bone density test conducted in 2023. Medical History - Chronic ulcers of the left valve - Breast cancer in the left breast - Breast cancer in the right breast Surgical History - Left breast surgery in March 2023 - Right breast cancer surgery in 2010 - Breast biopsy on December 07, 2024, performed by Dr. Maldonado under ultrasound guidance Social History - Insurance: Medicare and [employer] Supplemental Review of Systems Skin: Positive for chronic ulcers of the left valve, non-healing biopsy site. Physical Examination Skin: Small spot present at biopsy site on left breast. Biopsy site showing signs of healing. Laboratory, Imaging, and Diagnostic Test Results - Breast biopsy (12/07/2024): Showed scar tissue - PET scan: Hypermetabolic architecture distortion in the left breast, 6 cm in transverse dimension, seroma present, no cancer detected - Ultrasound (2022): Mass-like area extending 7.6 by 4.8 cm not seen ONCOLOGY HISTORY: DIAGNOSIS: Malignant neoplasm of overlapping sites of right female breast [ICD10] C50.811; Malignant neoplasm of lower-outer quadrant of left female breast [ICD10] C50.512; Oth disrd of bone density and structure, unspecified site [ICD10] M85.80 DATE OF DIAGNOSIS: 05/25/2011 STAGE/TNM: IA T1b N0 M0 TREATMENT HISTORY: Care?Plan Start?Date Cycle Day Intent DOCEtaxel?75,?Cyclophosphamide?600 05/14/2023 1 21 Curative?(adjuvant) Zoledronic?Acid?4?mg?adjuvant 08/11/2024 1 180 Maintenance HISTORY OF PRESENT ILLNESS: OTHER MEDICAL HISTORY/CONDITIONS: HTN Hyperlipdemia Hypothyroid Right breast cancer - Dx 2010 Chronic back pain Left breast cancer - 01/25/2023 Lumbar radiiculapathy Right breast lumpectomy with axillary node dissection - 2009 Lumbar laminectomy - 11/07/2022 Coronary stents x 4 - 2019 FAMILY HISTORY: Father: Colon - Dx age 70; Basal cell skin cancer Sibling:?Sister?Gastric?-?Dx?-?age?59 SOCIAL HISTORY: 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 anastrozole - 1 mg 1 tab Daily 2. Centrum Silver Women - 8 mg iron-400 mcg-50 mcg 1 tab Daily 3. Citracal + D Slow Release - 600 mg-12.5 mcg (500 unit) 1 tab one tab po q daily 4. clopidogrel - 75 mg 1 tab Daily 5. levothyroxine - 25 mcg 1 tab Daily 6. lisinopril - 10 mg 1 tab Daily 7. lisinopril - 5 mg 1 tab Daily 8. loratadine - 10 mg 1 tab Continuously 9. metFORMIN - 500 mg 1 tab Daily 10. metoprolol succinate - 50 mg 1 tab Daily 11. Ocuvite Lutein - 1 Capsule Daily 12. rosuvastatin - 20 mg 1 tab Daily 13. TylenoL - 500 mg Capsule As needed Medications Last Reconciled by Rosalee Laura MA on 03/18/2025 ALLERGIES: No Known Drug Allergies REVIEW OF SYSTEMS: A complete 14-point review of systems was performed and is negative except as noted in interval history. PHYSICAL EXAMINATION: VITAL SIGNS: Temperature?99.8, B/P?102/61, Oxygen?Saturation?94% Weight?173?lbs PAIN: 0 - No pain ECOG Performance Status: None GENERAL APPEARANCE: Appears well, in no apparent distress, appropriately interactive. HEENT: Normocephalic, no temporal wasting, normal conjunctiva, no scleral icterus, normal hearing, lips without lesions, neck normal range of motion. CARDIOVASCULAR: Not assessed. PULMONARY: Normal respiratory effort, no respiratory distress or use of accessory muscles, speaking in full sentences, no tachypnea. EXTREMITIES: No pedal edema or cyanosis. SKIN: Normal skin appearance. NEUROLOGIC: Alert and oriented x4. PSHYCHIATRIC: Appropriate affect, mood normal, behavior normal, intact thought and speech. Breast shows nonhealing lesion LABORATORY DATA: I have personally reviewed and interpreted each of the patient?s relevant lab tests, abnormal findings are below: Date 02/05/25 03/12/25 ??WHITE?BLOOD?COUNT?(Thou/mm3) 4.9 5.2 ??RED?BLOOD?COUNT?(Miln/mm3) 4.00 4.23 ??HEMOGLOBIN?(gm/dl) 12.2 12.8 ??HEMATOCRIT?(%) 34.8?L 38.1 ??PLATELET?COUNT?(Thou/mm3) 220 215 ??NEUTROPHILS?%,?AUTO?(%) 57 54 ??LYMPH?%,?AUTO?(%) 30 31 ??NEUTROPHILS,?AUTO?(Thou/mm3) 2.8 2.8 ??GLUCOSE,RANDOM?(mg/dL) 118?H 143?H ??BLOOD?UREA?NITROGEN?(mg/dL) 13 13 ??CREATININE?(mg/dL) 0.70 0.90 ??SODIUM?(mmol/L) 139 139 ??POTASSIUM?(mmol/L) 4.0 5.1 ??CHLORIDE?(mmol/L) 104 104 ??CrCl?(CandG)?(ml/min) 77.02 59.80 ??AST/SGOT?(Unit/L) 34 45?H ??ALT/SGPT?(Unit/L) 33 41 ??ALKALINE?PHOSPHATASE?(Unit/L) 59 66 ??BILIRUBIN,?TOTAL?(mg/dL) 0.7 0.7 ??PROTEIN?TOTAL?(gm/dl) 6.7 7.4 ??ALBUMIN,?SERUM?(gm/dl) 4.5 4.9?H ??GLOBULIN?(gm/dl) 2.2?L 2.5 ??ALBUMIN/GLOBULIN?RATIO 2.0 2.0 ??CALCIUM,?SERUM?(mg/dL) 9.5 10.3 ??CALCIUM?SERUM?(CORRECTED)?(mg/dL) 9.5 10.3?H ASSESSMENT/PLAN: Ashanti Wolf, a female patient with a history of breast cancer in the right breast in 2010 and left breast in 2022, presents for follow-up of a breast mass and chronic ulcers of the left breast Breast mass Assessment: Patient underwent a breast biopsy on Rosa 14th, ordered by Dr. Morgan and performed under ultrasound by Dr. Maldonado. The biopsy showed scar tissue. A PET scan revealed hypermetabolic architecture distortion in the left breast, measuring 6 cm in transverse dimension, with seroma but no evidence of cancer. An MRI is scheduled for next week. The mass-like area extending 7.6 by 4.8 cm was not seen on the ultrasound in 2022. This area has been monitored with mammograms and ultrasounds every 6 months since the surgery in March 2023. Plan: - MRI scheduled for next Saturday - Referral to Dr. Garay (breast surgeon) for second opinion - Continue Ashly testing every 3 months for early detection of potential recurrence - Proceed with scheduled ultrasound of the left breast - Next mammogram scheduled for September - Follow-up appointment in 6 months Chronic ulcers of the left breast assessment: Patient has chronic ulcers of the left breast e, with the biopsy site not healing due to radiation damage. Patient started hyperbaric oxygen therapy last week as suggested by Dr[facility] to improve blood flow. Plan: - Continue hyperbaric oxygen therapy - Referral to plastic surgeon for evaluation - Consider skin flap if wound remains non-healing - Await Dr. Garay' opinion on healing if scar tissue is confirmed Osteopenia Assessment: Patient has been diagnosed with osteopenia based on a bone density test performed in 2023. Currently receiving treatment to strengthen bones. Plan: - Continue bone-strengthening infusion twice a year - Continue Cetraxal daily Diabetes Mellitus Assessment: Patient was recently diagnosed with diabetes mellitus following elevated glucose levels. Currently on metformin therapy with improved glucose control, now in the 100s range. Plan: - Continue metformin 500 mg (frequency not specified) - Encourage increased water intake for hydration - Advise limiting soda consumption, emphasizing water intake before any soda - Monitor glucose levels Hypercalcemia Assessment: Patient presents with slightly elevated calcium levels. Potential causes include dehydration or excessive calcium supplement intake. Plan: - Discontinue citric acid and multivitamins containing calcium - Increase water intake to address potential dehydration - Monitor calcium levels ORDERS: Order # Description [id number] Comprehensive Metabolic Panel - 12 + CBC with Auto Diff + MD Follow Up 3 Months [id number] CEA [id number] MD Follow Up 6 Month RETURN TO CLINIC: I reviewed the diagnosis, prognosis, and recommended treatment/procedure options with the patient (and/or their legal retail account representative), including the potential benefits, risks, side effects and alternative therapies. We also discussed the option of no treatment and the possibility of clinical trial participation, if applicable. All questions were addressed, and they demonstrated understanding. They provided informed consent to proceed with the proposed plan of care. BILLING AND COMPLIANCE: I reviewed external records from providers outside my specialty as summarized above. I spent a total of 50 minutes on this patient?s care on the day of their visit excluding time spent related to any billed procedures. This time includes time spent with the patient as well as time spent documenting in the medical record, reviewing patients records and tests, obtaining history, placing orders, communicating with other healthcare professionals, counseling the patient, family or caregiver, and/or care coordination for the diagnoses above. Electronically Signed by: {Object.Sanct_ID*PnP.NameFL@M}, {Object.Sanct_ID*PnP.Suffix@U} D: {Object.Sanct_Date} T: {Object.Sanct_Time} CC: Rupesh?Marina,? PCP: Gurpreet Briceño Referring: Gurpreet Briceño This document was completed utilizing speech recognition software. Grammatical errors, random word insertions, pronoun errors, and incomplete sentences are an occasional consequence of this system due to software limitations, ambient noise, and hardware issues. Any formal questions or concerns about the content, text or information contained within the body of this dictation should be directly addressed to the provider for clarification.
== END 2025-03-25 23:59 | disposition home or self-care (01) ==
LOC: SCTC 13:31
PROVIDERS: PCP Internal Medicine; Referring Provider Internal Medicine; Visit Provider Internal Medicine Hematology & Oncology
DX: N63.20 Unspecified lump in the left breast, unspecified quadrant (principal); N64.89 Other specified disorders of breast; Z85.3 Personal history of malignant neoplasm of breast; L98.499 Non-pressure chronic ulcer of skin of other sites with unspecified severity; M85.80 Other specified disorders of bone density and structure, unspecified site; E11.9 Type 2 diabetes mellitus without complications; Z79.84 Long term (current) use of oral hypoglycemic drugs; E83.52 Hypercalcemia
CPT/HCPCS: 99212; G0463

== ENCOUNTER 2025-03-23 07:46 | Outpatient (RCR) | payer MEDICARE, BC, SELFPAY | END 2025-03-25 23:59 | disposition home or self-care (01) | LOC: SWHD 07:46 | PROVIDERS: PCP Family Medicine; Referring Provider Family Medicine; Visit Provider Student in an Organized Health Care Education/Training Program | DX: L59.8 Other specified disorders of the skin and subcutaneous tissue related to radiation (principal); T81.89XA Other complications of procedures, not elsewhere classified, initial encounter; Y84.2 Radiological procedure and radiotherapy as the cause of abnormal reaction of the patient, or of later complication, without mention of misadventure at the time of the procedure; E03.9 Hypothyroidism, unspecified; I10 Essential (primary) hypertension; I25.10 Atherosclerotic heart disease of native coronary artery without angina pectoris; G52.9 Cranial nerve disorder, unspecified; C50.912 Malignant neoplasm of unspecified site of left female breast | CPT/HCPCS: 17250 ×3; 82962; 99213; A9270; G0277; G0463 ==

== ENCOUNTER → 2025-04-13 | Outpatient (CLI) | payer MEDICARE, BC, SELFPAY | END | disposition home or self-care (01) | LOC: SWHD 07:58 | PROVIDERS: PCP Family Medicine; Referring Provider Family Medicine; Visit Provider Student in an Organized Health Care Education/Training Program | DX: L59.8 Other specified disorders of the skin and subcutaneous tissue related to radiation (principal); T81.89XA Other complications of procedures, not elsewhere classified, initial encounter; Y84.2 Radiological procedure and radiotherapy as the cause of abnormal reaction of the patient, or of later complication, without mention of misadventure at the time of the procedure; L98.499 Non-pressure chronic ulcer of skin of other sites with unspecified severity; S21.002A Unspecified open wound of left breast, initial encounter; X58.XXXA Exposure to other specified factors, initial encounter; E03.9 Hypothyroidism, unspecified; I10 Essential (primary) hypertension; I25.10 Atherosclerotic heart disease of native coronary artery without angina pectoris; G52.9 Cranial nerve disorder, unspecified; C50.912 Malignant neoplasm of unspecified site of left female breast | CPT/HCPCS: 17250; 99212; G0463 ==

== ENCOUNTER 2025-04-19 08:49 | Outpatient (AMB) | payer MEDICARE, BC, SELFPAY ==
[2025-04-19 09:01] VITALS: BP 121/68; PULSE 77; RESP 20; TEMP 35.7; O2SAT 95; BMI 31.1
--- NOTE | 2025-04-19 09:01 | GSCOFFNT_ITS ---
Vital Signs - [facility] 04/19/25 09:01 Height 1.6 m Height Method Measured Weight 79.634 kg Weight Measurement Method Standing Scale BMI 31.1 BP 121/68 Blood Pressure Source Automatic Cuff Blood Pressure Location Left Upper Arm Position Sitting Respiration 20 Pulse 77 Pulse Source Monitor Temp 96.3 F L Temp Source Temporal Artery Scan Pulse Oximetry (%) 95 Oxygen Delivery Method Room Air Med/Allergies Allergies & Medications Allergies No Known Allergies Allergy (Verified 04/19/25 09:02) Medication Reconciliation clopidogrel 75 mg tablet 75 mg PO QDAY 02/18/23 [History Confirmed 04/19/25] levothyroxine 50 mcg capsule 50 mcg PO QDAY 02/18/23 [History Confirmed 04/19/25] loratadine 10 mg tablet 10 mg PO QDAY 02/18/23 [History Confirmed 04/19/25] rosuvastatin 20 mg tablet 20 mg PO QDAY 02/18/23 [History Confirmed 04/19/25] metoprolol succinate 25 mg tablet,extended release 24 hr 50 mg PO QDAY 04/30/23 [History Confirmed 04/19/25] alendronate 35 mg tablet 35 mg PO QWEEK 12/03/23 [History Confirmed 04/19/25] calcium 250 mg (as citrate)-vitamin D3 5 mcg (200 unit) tablet 1 tab PO BID 12/03/23 [History Confirmed 04/19/25] letrozole 2.5 mg tablet (Femara) 2.5 mg PO QDAY 12/03/23 [History Confirmed 04/19/25] naproxen sodium 220 mg tablet (Aleve) 220 mg PO QHSPRN 12/03/23 [History Confirmed 04/19/25] calcium phosphate-vitamin D3 250 mg calcium-250 unit chewable tablet 1 tab PO QDAY 03/30/24 [History Confirmed 04/19/25] lisinopril 5 mg tablet 5 mg PO QDAY 03/30/24 [History Confirmed 04/19/25] vit C-vit U-[id number]-dfnfopwh capsule 1 cap PO QDAY 03/30/24 [History Confirmed 04/19/25] MA Intake Visit Data Collection New Patient or Established: Established Patient (seen at [facility] within 3 years) Seen by Clinical Staff ONLY (RN/TONIA): No Reason for Visit:: FOLLOW UP Pain Present Currently: No Pain Scale Used: Weldon-Oneil/Numerical Automatic Print Developer Required: No PCP or OBGYN visit in last 3 months: Yes Hx Now: No Do You Feel Safe at Home: Yes Authorities Contacted: N/A Smoking Status Smoking Status: Never smoker Immunization / Flu Flu Vaccine in the Last 12 Months: No Flu Vaccine Exclusion Criteria: Refused by Patient Past Medical History Past Medical History NEUROLOGIC: Negative Neurological Disorders or Seizures CARDIAC: Positive Cardiac Disorders, Coronary Artery Disease (stents 2019), Edema (sometimes right ankle), Hypertension and Varicose Veins; Negative Congestive Heart Failure RESPIRATORY: Negative Chronic Obstructive Pulmonary Disease (COPD) GASTROINTESTINAL: Positive Gastrointestinal Disorders and Obesity; Negative Hepatitis GENITOURINARY: Negative Genitourinary Disorders or Renal Disease REPRODUCTIVE: Positive Breast Cancer (Left, right breast past) and Previous Pregnancies MUSCULOSKELETAL: Positive Arthritis ENT: Negative Cataracts ENDOCRINE: Positive Endocrine Disorders, Hypoglycemia, Hyperthyroidism and Hypothyroidism; Negative Diabetes Mellitus Type 1 or Diabetes Mellitus Type 2 HEMATOLOGIC: Negative Blood Disorders OTHER HISTORY: Positive Hospitalization (surgery), Chemotherapy, Radiation Therapy (2010 right breast), Chicken Pox, Measles, Cancer and Breast Cancer (Left, right breast past); Negative Shingles, Blood Transfusions, Anesthesia Reactions, Organ Transplant or MRSA Family History FAMILY HISTORY: Positive Family Cancer and Family Surgery; Negative Family Psychiatric Problems, Family Respiratory Disorders, Family Cardiac Disorders, Family Gastrointestinal Problems or Family Anesthesia Reaction Surgical History SURGICAL: Positive Coronary Stent, Mastectomy and Lumpectomy; Negative Endocrine Surgery (hypothyroidism), Thyroidectomy, Ear Surgery, Tympanostomy Tube, Eye Surgery, Nose Surgery, Oral Surgery, Tonsillectomy, Adenoidectomy, Cochlear Implant, Corneal Transplant, Throat Surgery, Abdominal Surgery, Tracheostomy, Gastric Bypass Surgery, Gastrostomy, Bowel Surgery, Nephrectomy, Transurethral Resection, Neurologic Surgery, Brain Shunt, Vasectomy or Organ Transplant Social History SMOKING STATUS: Smoking status: Never smoker SECOND HAND EXPOSURE: second hand exposure: No ALCOHOL: Alcohol Intake: Never HOUSING: Housing: House HPI HPI Narrative 69F with HTN, HLD, hypothyroidism, CAD, left breast CA s/p lumpectomy with SLNB 04/01/23 followed by chemoradiation, with symptomatic left breast hematoma s/p I&D 12/04/23 here for follow up. Pt is doing well, she completed hyperbaric oxygen therapy and is now not needing to dress the wound. She received a second opinion by Dr Garay breast surgeon who did not recommend any surgical intervention and is following regularly with Dr Chester for surveillance with Khurram CACERES Review of Systems Systems Reviewed: All systems reviewed, normal except as documented Objective/Exam General General Appearance: alert, cooperative and well groomed Chest Chest inspection: Present other (left breast upper outer wound now fully healed with no further granulation tissue, no erythema, no fluctuance or tenderness) Resp Respiratory exam: Absent respiratory distress Assessment & Plan Diagnosis / Problem List (1) Postoperative seroma: Status: Acute Qualifiers: Laterality: left Assessment & Plan: 69F with HTN, HLD, hypothyroidism, CAD, left breast CA s/p lumpectomy with SLNB 04/01/23 followed by chemoradiation, with symptomatic left breast hematoma s/p I&D 12/04/23 here for follow up, recovering well thanks to intensive treatment at our wound [facility] center Plan: Follow up with oncology as scheduled Follow up in 6 mos Advanced Care Planning Advance care planning discussed with:: other Office Procedures GNS Level of Care Nursing/Assessment Patient Status: Established Patient Nursing Assessment/Reassesment: Medication Reconciliation, Update PMH in EMR and Vital Signs Coordination of Care: Complex Care and Chronic Disease 1-5, Consent,records obtained, informed consent, Education Simp Pt/Fam, Results/Orders obtained and Staff clarify orders Established Patient Charge Established Patient Point Assignment: 90 Established Patient Point Charge: EP Level 3 (80-115) Patient Portal Questionaires Social History Living Situation History Housing: House Tobacco History Smoking Status: Never smoker Second Hand Smoke Exposure: No Alcohol History Alcohol Intake: Never Domestic Abuse History Do You Feel Safe at Home: Yes Review of Systems Report any current symptoms Only answer those that you have currently: Past Medical History Past Medical History Have you ever been diagnosed with any of the following: Neurological Problems Seizures: No Cardiology Problems Coronary Artery Disease: Yes (stents 2019) Congestive Heart Failure: No Edema: Yes (sometimes right ankle) Hypertension: Yes Varicose Veins: Yes Respiratory Problems Chronic Obstructive Pulmonary Disease (COPD): No Stomache/Intestinal Problems Hepatitis: No Obesity: Yes Genital/Urinary Problems Renal Disease: No Reproductive Problems Breast Cancer: Yes (Left, right breast past) Previous Pregnancies: Yes Musculoskeletal Problems Arthritis: Yes Head,Eye,Nose,Throat Problems Cataracts: No Endocrine Problems Diabetes Mellitus Type 1: No Diabetes Mellitus Type 2: No Hypoglycemia: Yes Hyperthyroidism: Yes Hypothyroidism: Yes Other Problems Hospitalization: Yes (surgery) Shingles: No Blood Transfusions: No Anesthesia Reactions: No Organ Transplant: No Chemotherapy: Yes Radiation Therapy: Yes (2010 right breast) MRSA: No Chicken Pox: Yes Measles: Yes Cancer: Yes Surgical History Thyroidectomy: No
== END 2025-04-19 09:20 | disposition home or self-care (01) ==
LOC: HODSRG 08:49
PROVIDERS: PCP Family Medicine; Referring Provider Family Medicine; Supervising Provider Orthopaedic Surgery Adult Reconstructive Orthopaedic Surgery; Visit Provider Orthopaedic Surgery Adult Reconstructive Orthopaedic Surgery
DX: Z48.817 Encounter for surgical aftercare following surgery on the skin and subcutaneous tissue (principal); I10 Essential (primary) hypertension; I25.10 Atherosclerotic heart disease of native coronary artery without angina pectoris; C50.912 Malignant neoplasm of unspecified site of left female breast
CPT/HCPCS: 99213; G0463

== ENCOUNTER → 2025-04-27 | Outpatient (CLI) | payer MEDICARE, BC, SELFPAY | END | disposition home or self-care (01) | LOC: SWHD 08:58 | PROVIDERS: PCP Family Medicine; Referring Provider Family Medicine; Visit Provider Student in an Organized Health Care Education/Training Program | DX: L59.8 Other specified disorders of the skin and subcutaneous tissue related to radiation (principal); T81.89XA Other complications of procedures, not elsewhere classified, initial encounter; S21.002A Unspecified open wound of left breast, initial encounter; X58.XXXA Exposure to other specified factors, initial encounter; L98.499 Non-pressure chronic ulcer of skin of other sites with unspecified severity; Y84.2 Radiological procedure and radiotherapy as the cause of abnormal reaction of the patient, or of later complication, without mention of misadventure at the time of the procedure; E03.9 Hypothyroidism, unspecified; I10 Essential (primary) hypertension; G52.9 Cranial nerve disorder, unspecified; C50.912 Malignant neoplasm of unspecified site of left female breast | CPT/HCPCS: 99212; G0463 ==

== ENCOUNTER 2025-05-13 08:18 | Outpatient (RCR) | payer MEDICARE, BC, SELFPAY ==
--- NOTE | 2025-05-13 09:09 | CTCFLWUP_ITS ---
[facility] [address] [place], [place] [address] FOLLOW-UP NOTE Date: 05/13/2025 MR#: [id number] Name: NGUYỄN PIZARRO : 1955 Dx: C50.811 Malignant neoplasm of overlapping sites of right female breast Identification. History of stage Ia right breast CA status post right partial mastectomy sentinel biopsy radiation therapy completed September 2011 followed by 5 years of Arimidex. New left breast CA lobular type invasive partial mastectomy lymph node biopsy 04/01/2023 Oncotype score was high at 33. After completing chemo Taxotere Cytoxan 08/14/2023 3990 cGy completed 10/15/2023. For receptor positive left breast cancer placed on letrozole along with alendronate and Citracal. Developed wound in left breast axilla region needing local care and hyperbaric oxygen therapy. PET scan 12/22/2024 hypermetabolic architectural distortion left breast 6 x 2 cm along with left breast seroma. MRI 01/05/2025 favored benign scarring left breast along with seroma. Signatera was - 04/25/2025. As I see patient today the left breast contains a large defect in the outer quadrant but appears to be healing well with the right breast showing good cosmetic result with no sign of recurrence. Assessment #1 stage Ia right breast CA partial mastectomy postop radiation 2011 5 years of Arimidex. #2. left breast CA partial mastectomy high Oncotype Dx chemo postop radiation therapy completed 10/15/2023. #3. received local care and hyperbaric oxygen for left breast wound, now healing well... #4. recent radiographs as well as Ashly result suggest no sign of recurrent or metastatic breast cancer. #5. Being followed by Dr. Chester with anastrozole for receptor positive breast cancer #6. I will see her as needed in the future. Electronically signed by: Alessio Horne M.D. 05/13/2025 9:06 AM
== END 2025-05-25 23:59 | disposition home or self-care (01) ==
LOC: SCTC 08:18
PROVIDERS: PCP Internal Medicine; Referring Provider Internal Medicine; Visit Provider Radiology Therapeutic Radiology
DX: C50.812 Malignant neoplasm of overlapping sites of left female breast (principal); Z17.0 Estrogen receptor positive status [ER+]; Z17.22 Progesterone receptor negative status; Z17.32 Human epidermal growth factor receptor 2 negative status; Z90.13 Acquired absence of bilateral breasts and nipples; Z79.811 Long term (current) use of aromatase inhibitors
CPT/HCPCS: 99213; G0463

== ENCOUNTER → 2025-06-29 | Outpatient (CLI) | payer MEDICARE, BC, SELFPAY | END | disposition home or self-care (01) | LOC: SWHD 08:49 | PROVIDERS: PCP Family Medicine; Referring Provider Family Medicine; Visit Provider Student in an Organized Health Care Education/Training Program | DX: L59.8 Other specified disorders of the skin and subcutaneous tissue related to radiation (principal); T81.89XA Other complications of procedures, not elsewhere classified, initial encounter; S21.002A Unspecified open wound of left breast, initial encounter; X58.XXXA Exposure to other specified factors, initial encounter; Y84.2 Radiological procedure and radiotherapy as the cause of abnormal reaction of the patient, or of later complication, without mention of misadventure at the time of the procedure; I10 Essential (primary) hypertension; C50.912 Malignant neoplasm of unspecified site of left female breast; G52.9 Cranial nerve disorder, unspecified; Z79.84 Long term (current) use of oral hypoglycemic drugs | CPT/HCPCS: 99212; G0463 ==

== ENCOUNTER → 2025-07-05 | Outpatient (CLI) | payer MEDICARE, BC, SELFPAY ==
[2025-07-05 08:54] LABS: Glucose Estimated Average 140 mg/dL (80-131); Hemoglobin A1C 6.5 % Hgb (4.8-6.0)
[2025-07-05 09:39] LABS: Creatinine MALB Rnd Ur 158 mg/dL (30-125); Microalbumin Creat Ratio 6 mg/gCrea (<30); Microalbumin, Random Urine 9 mg/L (0-300)
== END | disposition home or self-care (01) ==
LOC: COPL 07:16
PROVIDERS: PCP Internal Medicine; Referring Provider Internal Medicine; Visit Provider Internal Medicine
DX: E11.65 Type 2 diabetes mellitus with hyperglycemia (principal)
CPT/HCPCS: 36415; 82043; 82570; 83036

== ENCOUNTER → 2025-07-29 | Outpatient (CLI) | payer MEDICARE, BC, SELFPAY ==
[2025-07-29 08:34] LABS: Basophils # (Auto) 0.1 Thou/mm3 (0.0-0.2); Basophils % (Auto) 1 % (0-2.5); Eosinophils # (Auto) 0.3 Thou/mm3 (0.0-0.5); Eosinophils % (Auto) 4 % (0-10); Hematocrit 40.6 % (36.0-46.0); Hemoglobin 13.2 g/dL (12.0-16.0); Immature Granulocytes Auto 0.02 Thou/mm3 (0.00-0.00); Lymphocytes # (Auto) 1.9 Thou/mm3 (1.0-4.8); Lymphocytes % (Auto) 32 % (10-50); Mean Corpuscular HGB Conc 32.5 g/dl (31.0-37.0); Mean Corpuscular Hemoglobin 29.9 pg (25.0-35.0); Mean Corpuscular Volume 92 fL (80-100); Monocytes # (Auto) 0.7 Thou/mm3 (0.0-0.8); Monocytes % (Auto) 12 % (0-12); Neutrophils # (Auto) 3.0 Thou/mm3 (1.8-7.7); Neutrophils % (Auto) 51 % (37-80); Nucleated Red Blood Cell # 0.00 Thou/mm3 (0.00-0.00); Nucleated Red Blood Cell % 0 /100 WBC (0); Platelet Count 217 Thou/mm3 (140-440); RDW Standard Deviation 46.1 fL (36.4-46.3); Red Blood Count 4.42 Miln/mm3 (4.00-5.20); White Blood Count 5.9 Thou/mm3 (3.6-11.0)
[2025-07-29 08:57] LABS: Alanine Aminotransferase 60 U/L (10-49); Albumin, Serum 4.9 gm/dL (3.4-4.8); Albumin/Globulin Ratio 1.9 (1.2-2.2); Alkaline Phosphatase 74 U/L (46-116); Anion Gap 9 (7-16); Aspartate Amino Transferase 54 U/L (0-34); BUN/Creatinine Ratio 18 Ratio (12-20); Bilirubin,Total 0.5 mg/dL (0.3-1.2); Blood Urea Nitrogen 14 mg/dL (9-23); Calcium 10.1 mg/dL (8.3-10.6); Calcium (Corrected) 10.1 mg/dL (8.5-10.1); Carbon Dioxide 26.8 mMol/L (20.0-31.0); Chloride 104 mMol/L (98-107); Creatinine (Component) 0.8 mg/dL (0.6-1.3); Globulin 2.6 gm/dL (2.3-3.5); Glucose 124 mg/dL (74-106); Osmolality,Calculated 280 (275-295); Potassium 4.3 mMol/L (3.4-5.1); Sodium 140 mMol/L (136-145); Total Protein 7.5 gm/dL (5.7-8.2); eGFR > 60 See Note
== END | disposition home or self-care (01) ==
LOC: COPL 07:35
PROVIDERS: PCP Internal Medicine; Referring Provider Internal Medicine Hematology & Oncology; Visit Provider Internal Medicine Hematology & Oncology
DX: C50.811 Malignant neoplasm of overlapping sites of right female breast (principal); C50.512 Malignant neoplasm of lower-outer quadrant of left female breast; M85.80 Other specified disorders of bone density and structure, unspecified site
CPT/HCPCS: 36415; 80053; 85025

== ENCOUNTER 2025-08-11 13:00 | Outpatient (RCR) | payer MEDICARE, BC, SELFPAY | END 2025-08-25 23:59 | disposition home or self-care (01) | LOC: SCTC 13:00 | PROVIDERS: PCP Internal Medicine; Referring Provider Internal Medicine; Visit Provider Radiology Therapeutic Radiology | DX: C50.812 Malignant neoplasm of overlapping sites of left female breast (principal); Z17.0 Estrogen receptor positive status [ER+]; Z17.22 Progesterone receptor negative status; Z17.32 Human epidermal growth factor receptor 2 negative status; Z90.13 Acquired absence of bilateral breasts and nipples | CPT/HCPCS: 96365; J3489; J7030 ==